=== PATIENT | female | born 1950 | race Hispanic/Latino ===

== ENCOUNTER 2017-05-22 08:21 | Inpatient (IN) | payer MEDICARE, MEDICAID ==
[2017-05-22 10:05] LABS: #Lymphocytes 1.2 thou/uL (1.20-3.40); #Monocytes 0.4 thou/uL (0.11-0.59); #Neutrophils 7.8 thou/uL (1.40-6.50); %Basophils 0.3 % (0.0-1.0); %Eosinophils 0.2 % (0.0-10.0); %Lymphocytes 12.3 % (21.0-51.0); %Neutrophils 83.2 % (42.0-75.0); Hemoglobin 14.9 g/dL (12.0-16.0); Mean Corpuscular HGB CONC 31.5 g/dL (32.0-36.0); Mean Corpuscular Hemoglobin 31.1 pg (27.0-31.0); Mean Corpuscular Volume 98.9 fl (81.0-99.0); Platelet Count 286 thou/uL (130-400); RBC Distribution Width 12.2 % (11.5-14.5); Red Blood Cell (RBC) Count 4.77 mill/uL (4.20-5.40); White Blood Cell (WBC) Count 9.3 thou/uL (4.8-10.8)
--- NOTE | 2017-05-22 10:19 | RAD ---
FRONTAL VIEW CHEST SERIES: COMPARISON: 05/14/10. FINDINGS: The patient is rotated which accentuates the cardiomediastinal silhouette. There is ectasia and tort uosity of the thoracic aorta with calcification. The right hemidiaphragm is elevated limiting portio ns of the right lung base from view. There is no lobar consolidation. IMPRESSION: 1. Rotated patient accentuating cardiomediastinal silhouette. 2. There is limited visualization of the right lung base due to elevated right hemidiaphragm. 3. There is no lobar consolidation. POS: [facility]
[2017-05-22 10:33] LABS: CKMB 1.8 ng/mL (0-6.6); Troponin I 0.072 ng/mL (< 0.028)
[2017-05-22 10:35] LABS: ALT (SGPT) 8 U/L (8-55); AST (SGOT) 14 U/L (5-34); Albumin 4.3 g/dL (3.4-4.8); Alkaline Phosphatase 77 U/L (40-150); Anion Gap 23 mmol/L (10-20); BUN (Urea Nitrogen) Greater than 125 mg/dL (9.8-20.1); Bilirubin, Total 0.4 mg/dL (0.2-1.2); CK (CPK) 146 U/L (29-168); Calc. Creatinine Clearance 0 mL/min (70-130); Calcium 10.2 mg/dL (7.8-10.44); Carbon Dioxide 23 mmol/L (23-31); Chloride 121 mmol/L (98-107); Estimated GFR-MDRD 13; Globulin 3.5 g/dL (2.4-3.5); Glucose 174 mg/dL (80-115); Potassium 4.9 mmol/L (3.5-5.1); Protein, Total 7.8 g/dL (6.0-8.3); Sodium 162 mmol/L (136-145)
[2017-05-22 10:36] LABS: Bilirubin Small (Negative); Blood, Urine Negative (Negative); Clarity CLOUDY (Clear); Glucose, Urine (Dipstick) Negative (Negative); Leukocyte Trace (Negative); Nitrite Negative (Negative); Protein, Urine (Dipstick) Trace mg/dL (Neg-Trace); Specific Gravity, Urine 1.022 (1.002-1.036); Urobilinogen 0.2 mg/dL (0.2-1.0); pH, Urine 5.5 (5.0-9.0)
[2017-05-22 10:40] LABS: Bacteria/HPF None Seen HPF (None Seen); Hyaline Casts/LPF 7-10 HYALINE CAST LPF (0-3 Hyaline); Pathc Cast-AUWi Flag 2.16 (0-2.49); Squamous Epithelial 0-3 HPF (0-3); WBC/HPF 0-3 HPF (0-3)
--- NOTE | 2017-05-22 11:23 | CT ---
NONCONTRAST CT HEAD: Date: 05/22/17 HISTORY: Altered mental status. COMPARISON: 12/08/13. FINDINGS: Again noted are moderate chronic small vessel ischemic changes which do not appear to have significan tly progressed when compared to the prior study. Remote lacunar infarctions are again seen in the rig ht thalamus, as well as the right basal ganglia. There is a low density focus seen within the left ca udate nucleus, which was probably present on the prior study and likely represents a remote lacunar i nfarction. There is no evidence of an acute cortical infarction, hemorrhage, mass effect, or midline shift. Cerebral and cerebellar volume loss is again present. There is no other interval change from p rior exam. IMPRESSION: 1. No acute intracranial abnormalities demonstrated. 2. Overall stable chronic small vessel ischemic changes and cerebral volume loss. 3. Remote lacunar infarctions in each basal ganglia. POS: [facility]
[2017-05-22] MEDS ORDERED: Dextrose 5 %-0.45 % NaCl 1,000 ML IV SCH (11:45)
[2017-05-22] MEDS ORDERED: Dextrose 50% Abboject 50 ML SYRINGE SLOW IVP PRN (11:51)
[2017-05-22] MEDS ORDERED: Ondansetron HCl/PF 4 MG/2 ML Vial IVP PRN (11:51)
[2017-05-22] MEDS ORDERED: Dextrose 5% in Water 1,000 ML IV PRN (11:51)
[2017-05-22] MEDS ORDERED: HumaLOG 300 UNITS/3 ML VIAL SC PRN (11:51)
[2017-05-22] MEDS ORDERED: Acetaminophen 650 MG Suppository PR PRN (11:51)
[2017-05-22 11:57] LABS: Osmolality, Serum 388 mOsm/kg (280-295)
[2017-05-22 13:57] LABS: Troponin I 0.077 ng/mL (< 0.028)
[2017-05-22] MEDS ORDERED: FLU VACC TS2017-18 (>65YR) 0.5 ML SYRINGE IM ONE (15:45)
[2017-05-22] MEDS ORDERED: Prevnar 13-Val Conj/PF 0.5 ML SYRINGE IM ONE (15:45)
[2017-05-22] MEDS: Sodium Chloride 0.9% 1,000 ML IV SCH ×2 (16:21→22:08)
--- NOTE | 2017-05-22 17:54 | HP ---
PRIMARY CARE PHYSICIAN: Dr. Gonzalez. The patient is currently a resident of [facility]. DATE OF ADMISSION: 05/22/2017 TIME OF SERVICE: 11:30 CHIEF COMPLAINT: Altered mental status. HISTORY OF PRESENT ILLNESS: Ms. Hanley is a 66-year-old female with history of cer ebrovascular disease status post CVA leaving her aphasic and dysphagic. She is on a pureed diet with nectar thick liquids chronically and is a resident of a snf. Per note, she seems to get ar ound there okay, but over the last several days, she had decreased p.o. intake including medications and just decreased level of consciousness over the last week or so. She has not been altered from he r baseline, but she has been more difficult to arouse. She remains aphasic, unable to give any further history, most of the history is taken from the chart. Her sister Fadia, area code [phone], is her next to kin is not currently in the room. We will contact her when I have the opportunity. She was brought to the emergency department for evaluation. Here, she was found to have a creatinine of 3.45 and a BUN greater than 125, sodium was 162 and blood counts were normal. We were subsequent ly called for admission for acute kidney injury. The patient answers yes/no appropriately to questions. She states she has not been hungry, does want to eat. Although I am unsure of the reliability. I did ask her about feeding tube and she said she would be agreeable. PAST MEDICAL HISTORY: 1. Hypertension with hypertensive heart disease. 2. Degenerative joint disease. 3. Dementia. 4. 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 5. Diabetes mellitus, type 2. 6. Iron deficiency anemia. 7. Possible seizure disorder. 8. Depression. 9. Schizophrenia. 10. Some kind of renal disease that was not clearly articulated. PAST SURGICAL HISTORY: Includes a procedure for a previous cerebral aneurysm. HOME MEDICATIONS: 1. Amlodipine 10 mg p.o. daily. 2. Metformin 1000 mg p.o. b.i.d. 3. Lisinopril/HCTZ 01/22.5 one p.o. daily. 4. Trazodone 50 mg p.o. b.i.d. 5. Seroquel 50 mg p.o. daily. 6. Remeron 50 mg p.o. at bedtime, recently started. 7. 2 p.o. q.a.m. ALLERGIES: LEVOFLOXACIN, reaction is unknown. FAMILY HISTORY: Negative for clotting or bleeding disorder. No immune dysfunction. SOCIAL HISTORY: Negative for habits x3. She is a resident of [facility] custodial care. REVIEW OF SYSTEMS: Not obtainable due to aphasia. PHYSICAL EXAMINATION: VITAL SIGNS: Temperature 98.0, pulse 100, blood pressure 123/88, respiratory rate 20, satting 98% on room air. GENERAL: She is awake. She is alert. She appears to be in no acute distress. She is cachectic and very thin and frail. HEENT: Normocephalic, atraumatic, she has temporal wasting. Mucous membranes are dry. NECK: Supple. There is no lymphadenopathy, JVD or thyromegaly. She has normal carotid upstrokes. I do not appreciate bruits. LUNGS: Clear bilaterally. No wheezes, no rales, no rhonchi. CARDIOVASCULAR: Normal S1, S2. She is tachycardic, but regular. No audible murmurs. ABDOMEN: Soft, it is scaphoid, it is nontender. She has good bowel sounds. EXTREMITIES: Show no cyanosis, no clubbing, no edema. Does have a peripheral muscle wasting. SKIN: Warm, moist, and well perfused. She has no rashes or lesions. NEUROLOGIC: She moves all 4 of her extremities, has good strength. She nods and shakes her head amelia ropriately. Her cranial nerves appear to be otherwise intact. She is unable to speak clearly. She occasionally makes a word and says hello. MUSCULOSKELETAL: Large joints appear uninflamed without effusions. LABORATORY DATA: Sodium 162, potassium 4.9, chloride 121, bicarbonate 23, BUN greater than 125, crea tinine 3.45, glucose 174. Liver function completely within normal limits. CBC showed a white count of 9.3, hemoglobin 14.9, hematocrit of 47.2, and platelet count is 286,000. TSH is normal at 0.6125, CK-MB normal at 1.8, troponin I is elevated in the indeterminate range of 0 .072. Urinalysis unremarkable. Brain CT showed chronic small vessel disease, but no acute intracranial abnormalities. Chest x-ray s howed elevated left hemidiaphragm and no acute cardiopulmonary disease. ASSESSMENT AND PLAN: 1. Acute kidney injury. Creatinine is 3.45 with a BUN greater than 125 with no history of known rama al problems. Seems to be severely dehydrated. Having failure to thrive. We will give her 1 liter b olus and start her at 150 mL per hour of normal saline and watch the labs very closely. The patient states she is not hungry and this is likely secondary to decreased intake. 2. Hypernatremia. Sodium was 162 due to free water deficit. We will continue to replace. 3. Diabetes mellitus, type 2. Glucose 174. We will check a hemoglobin A1c in the morning. A slidi ng scale insulin has been ordered. I have ordered her a pureed diet with nectar thick liquids and as k the speech therapy to evaluate. 4. Severe protein calorie malnutrition. We will ask the nutrition to see. 5. Severe muscle atrophy. PT, OT has been consulted. 6. I have asked palliative care to see regarding disease progression and to determine real-life expe ctations with the family and prognosis and advanced directives. Again, I did talk to the patient about a feeding tube, she said yes, but she does have a diagnosis of dementia and schizophrenia. We will discuss with her family regarding a feeding tube would be somet jose manuel that they might be interested in. I think without that, we need to focus on comfort measures on ly.
[2017-05-22 18:00] LABS: Troponin I 0.071 ng/mL (< 0.028)
[2017-05-22] MEDS: Famotidine/PF 20 mg/2ml Vial SLOW IVP SCH (22:04)
[2017-05-23] MEDS: Sodium Chloride 0.9% 1,000 ML IV SCH (02:04)
[2017-05-23 05:53] LABS: #Lymphocytes 1.5 thou/uL (1.20-3.40); #Monocytes 0.5 thou/uL (0.11-0.59); #Neutrophils 6.3 thou/uL (1.40-6.50); %Basophils 0.3 % (0.0-1.0); %Lymphocytes 17.9 % (21.0-51.0); %Monocytes 5.6 % (0.0-10.0); %Neutrophils 76.2 % (42.0-75.0); Hemoglobin 12.5 g/dL (12.0-16.0); Mean Corpuscular HGB CONC 31.6 g/dL (32.0-36.0); Mean Corpuscular Hemoglobin 31.5 pg (27.0-31.0); Mean Corpuscular Volume 99.7 fl (81.0-99.0); Mean Platelet Volume 9.8 fL (7.4-10.4); Platelet Count 212 thou/uL (130-400); Red Blood Cell (RBC) Count 3.97 mill/uL (4.20-5.40); White Blood Cell (WBC) Count 8.3 thou/uL (4.8-10.8)
[2017-05-23 06:36] LABS: Hemoglobin A1c 5.5 % (4.0-6.0)
[2017-05-23 06:45] LABS: Anion Gap 17 mmol/L (10-20); BUN (Urea Nitrogen) 103 mg/dL (9.8-20.1); Calc. Creatinine Clearance 19 mL/min (70-130); Calcium 9.2 mg/dL (7.8-10.44); Carbon Dioxide 23 mmol/L (23-31); Chloride 131 mmol/L (98-107); Estimated GFR-MDRD 23; Glucose 103 mg/dL (80-115); Magnesium 2.4 mg/dL (1.6-2.6); Potassium 3.7 mmol/L (3.5-5.1); Sodium 167 mmol/L (136-145)
--- NOTE | 2017-05-23 06:52 | PDOC.EVN ---
Event Note - Event Note Event Note: IVF changed from NS to D5W for severe hypernatremia
[2017-05-23] MEDS: Sodium Chloride 0.45% 1,000 ML IV SCH ×3 (09:53→23:45)
[2017-05-23] MEDS: Dextrose 5% in Water 1,000 ML IV SCH ×2 (09:54→16:13)
--- NOTE | 2017-05-23 15:08 | PDOC.PN ---
- Subjective Encounter Start Date: 05/23/17 Encounter Start Time: 10:05 -: non-verbal Pt seen and examined, Dr Das note reviewed, Discussed case with pateint and Fadia her sister face to face. No feeding tubes per pt request when she was more lucid. no f/c, no N/V/D/C, no CP, no SOb, no acute events. Sister willing to try megace. if unsuccessful, considering hospice - Objective MAR Reviewed: Yes Vital Signs & Weight: Vital Signs (12 hours) Temp Pulse Resp BP Pulse Ox 05/23/17 08:43 97.6 F 77 16 145/87 H 99 05/23/17 08:00 97.6 F 77 16 Weight Weight 103 lb I&O: 05/22/17 05/23/17 05/24/17 06:59 06:59 06:59 Intake Total 2125 Balance 2125 Result Diagrams: 05/23/17 04:34 05/23/17 04:34 Additional Labs: Accuchecks 05/23/17 05/23/17 05/22/17 11:38 04:58 20:21 POC Glucose 148 H 100 100 05/22/17 16:12 POC Glucose 130 H Phys Exam - Physical Examination Constitutional: NAD cachectic HEENT: PERRLA, moist MMs, sclera anicteric, oral pharynx no lesions Neck: no nodes, no JVD, supple Respiratory: no wheezing, no rales, no rhonchi, clear to auscultation bilateral Cardiovascular: RRR, no significant murmur, no rub Gastrointestinal: soft, non-tender, no distention, positive bowel sounds Musculoskeletal: no edema, pulses present Neurological: non-focal, normal sensation, moves all 4 limbs Lymphatic: no nodes Skin: no rash, normal turgor, cap refill <2 seconds Dx/Plan - Plan cont current plan of care, plan discussed w/ family, PT/OT * .
[2017-05-23] MEDS: Megestrol Acetate 800 MG/20 ML UDCUP PO SCH ×2 (16:16→16:59)
[2017-05-23] MEDS: Famotidine/PF 20 mg/2ml Vial SLOW IVP SCH (21:28)
[2017-05-24] MEDS: Sodium Chloride 0.45% 1,000 ML IV SCH ×4 (02:44→21:27)
[2017-05-24 04:51] LABS: #Basophils 0.1 thou/uL (0.0-0.2); #Eosinphils 0.2 thou/uL (0.0-0.7); #Lymphocytes 1.7 thou/uL (1.20-3.40); #Monocytes 0.5 thou/uL (0.11-0.59); #Neutrophils 5.2 thou/uL (1.40-6.50); %Basophils 0.9 % (0.0-1.0); %Eosinophils 2.1 % (0.0-10.0); %Lymphocytes 22.1 % (21.0-51.0); %Monocytes 6.5 % (0.0-10.0); %Neutrophils 68.4 % (42.0-75.0); Hemoglobin 12.5 g/dL (12.0-16.0); Mean Corpuscular Hemoglobin 32.3 pg (27.0-31.0); Mean Corpuscular Volume 97.7 fl (81.0-99.0); Mean Platelet Volume 9.8 fL (7.4-10.4); Platelet Count 183 thou/uL (130-400); RBC Distribution Width 11.8 % (11.5-14.5); Red Blood Cell (RBC) Count 3.86 mill/uL (4.20-5.40); White Blood Cell (WBC) Count 7.6 thou/uL (4.8-10.8)
[2017-05-24 05:07] LABS: Anion Gap 11 mmol/L (10-20); BUN (Urea Nitrogen) 49 mg/dL (9.8-20.1); Calc. Creatinine Clearance 31 mL/min (70-130); Calcium 9.2 mg/dL (7.8-10.44); Carbon Dioxide 26 mmol/L (23-31); Chloride 121 mmol/L (98-107); Estimated GFR-MDRD 40; Glucose 110 mg/dL (80-115); Magnesium 1.9 mg/dL (1.6-2.6); Potassium 3.1 mmol/L (3.5-5.1); Sodium 155 mmol/L (136-145)
[2017-05-24] MEDS: Megestrol Acetate 800 MG/20 ML UDCUP PO SCH (10:01)
--- NOTE | 2017-05-24 17:14 | PDOC.PN ---
- Subjective Encounter Start Date: 05/24/17 Encounter Start Time: 16:50 Subjective: f/u for severe dehydration, SHAHZAD and hypernatremia. Overall metabolic -: parameters improved. Poor po intake per family. - Objective MAR Reviewed: Yes Vital Signs & Weight: Vital Signs (12 hours) Temp Pulse Resp BP Pulse Ox 05/24/17 08:00 97.7 F 66 16 147/81 H 97 Weight Admit Weight 103 lb Weight 103 lb 3 oz I&O: 05/23/17 05/24/17 05/25/17 06:59 06:59 06:59 Intake Total 2124 Balance 2124 Result Diagrams: 05/24/17 04:35 05/24/17 04:35 Additional Labs: Accuchecks 05/24/17 05/24/17 05/23/17 11:35 05:12 20:53 POC Glucose 129 H 99 155 H 05/23/17 17:05 POC Glucose 171 H Microbiology 05/22/17 10:42 Throat - Pending Group A Streptococcus Culture - Final 05/22/17 10:10 Urine Straight Catheter Urine Culture - Final NO GROWTH AT 48 HOURS 05/22/17 10:05 Throat - Pending Group A Streptococcus Screen (ELGIN) - Final Laboratory Tests 05/22/17 05/23/17 05/24/17 09:56 04:34 04:35 Sodium 162 H* 167 H* Potassium 3.7 Creatinine 3.45 H 2.17 H Magnesium 1.9 Phys Exam - Physical Examination alert, nods head to questions HEENT: PERRLA, oral pharynx no lesions Neck: no JVD, supple Respiratory: no wheezing, clear to auscultation bilateral Cardiovascular: RRR Gastrointestinal: soft, non-tender, no distention, positive bowel sounds Musculoskeletal: no edema, pulses present Neurological: normal sensation, moves all 4 limbs Skin: normal turgor, cap refill <2 seconds Dx/Plan (1) SHAHZAD (acute kidney injury) Code(s): N17.9 - ACUTE KIDNEY FAILURE, UNSPECIFIED Status: Acute Comment: Secondary to dehydration, improving, continue IVF's and monitor trend (2) Acute hypernatremia Code(s): E87.0 - HYPEROSMOLALITY AND HYPERNATREMIA Status: Acute Comment: Improved, continue D5W and repeat Na+ level in am (3) Hypokalemia Code(s): E87.6 - HYPOKALEMIA Status: Acute Comment: KlorCon 40meq BID (4) Protein-calorie malnutrition, moderate Code(s): E44.0 - MODERATE PROTEIN-CALORIE MALNUTRITION Status: Chronic Comment: Dietary consult for recommendations, family contemplating PEG tube vs po intake (5) Dysphagia as late effect of cerebrovascular accident (CVA) Code(s): I69.391 - DYSPHAGIA FOLLOWING CEREBRAL INFARCTION Status: Chronic Comment: See above (6) DM II (diabetes mellitus, type II), controlled Code(s): E11.9 - TYPE 2 DIABETES MELLITUS WITHOUT COMPLICATIONS Status: Chronic Comment: ISS, Metformin, accuchecks - Plan Continue IVF's -: Dietitian consult in am for swallowing evaluation -: KlorCon 40meq BID -: PT for mobilization -: AM lab: BMP * .
[2017-05-24] MEDS: Famotidine/PF 20 mg/2ml Vial SLOW IVP SCH (21:22)
[2017-05-25] MEDS: Sodium Chloride 0.45% 1,000 ML IV SCH ×3 (05:25→23:00)
[2017-05-25 05:37] LABS: Anion Gap 11 mmol/L (10-20); BUN (Urea Nitrogen) 24 mg/dL (9.8-20.1); Calc. Creatinine Clearance 46 mL/min (70-130); Calcium 8.7 mg/dL (7.8-10.44); Carbon Dioxide 23 mmol/L (23-31); Chloride 113 mmol/L (98-107); Estimated GFR-MDRD 64; Glucose 98 mg/dL (80-115); Potassium 3.2 mmol/L (3.5-5.1); Sodium 144 mmol/L (136-145)
[2017-05-25] MEDS: Megestrol Acetate 800 MG/20 ML UDCUP PO SCH (10:03)
--- NOTE | 2017-05-25 20:08 | PDOC.PN ---
- Subjective Encounter Start Date: 05/25/17 Encounter Start Time: 19:50 Subjective: f/u for SHAHZAD, hypernatremia and severe dehydration on IVF's. Overall -: improved and more alert. Pt declining PEG tube and will continue po intake -: with risks. - Objective Resuscitation Status: Resuscitation Status DNR:Do Not Resuscitate MAR Reviewed: Yes Vital Signs & Weight: Vital Signs (12 hours) BP 05/25/17 09:20 156/99 H Weight Admit Weight 103 lb Weight 94 lb 3.609 oz I&O: 05/24/17 05/25/17 05/26/17 06:59 06:59 06:59 Intake Total 1475 Balance 1475 Result Diagrams: 05/24/17 04:35 05/25/17 04:35 Additional Labs: Accuchecks 05/25/17 05/25/17 05/25/17 16:44 12:12 05:28 POC Glucose 153 H 126 H 67 L 05/24/17 21:26 POC Glucose 130 H Phys Exam - Physical Examination Constitutional: NAD HEENT: PERRLA, oral pharynx no lesions Neck: no JVD, supple Respiratory: no wheezing, clear to auscultation bilateral Cardiovascular: RRR Gastrointestinal: soft, non-tender, no distention, positive bowel sounds Musculoskeletal: no edema, pulses present Skin: normal turgor, cap refill <2 seconds Dx/Plan (1) SHAHZAD (acute kidney injury) Code(s): N17.9 - ACUTE KIDNEY FAILURE, UNSPECIFIED Status: Acute Comment: Secondary to dehydration, improving, continue IVF's and monitor trend (2) Acute hypernatremia Code(s): E87.0 - HYPEROSMOLALITY AND HYPERNATREMIA Status: Acute Comment: Improved, continue D5W and repeat Na+ level in am (3) Hypokalemia Code(s): E87.6 - HYPOKALEMIA Status: Acute Comment: KlorCon 40meq BID (4) Protein-calorie malnutrition, moderate Code(s): E44.0 - MODERATE PROTEIN-CALORIE MALNUTRITION Status: Chronic Comment: Dietary consult for recommendations, family contemplating PEG tube vs po intake (5) Dysphagia as late effect of cerebrovascular accident (CVA) Code(s): I69.391 - DYSPHAGIA FOLLOWING CEREBRAL INFARCTION Status: Chronic Comment: See above (6) DM II (diabetes mellitus, type II), controlled Code(s): E11.9 - TYPE 2 DIABETES MELLITUS WITHOUT COMPLICATIONS Status: Chronic Comment: ISS, Metformin, accuchecks - Plan plan discussed w/ family, PT/OT, social services counselor, speech therapy, DVT proph w/ SCDs Stable overall -: Continue IVF's another 24h then d/c -: Palliative care consult appreciated -: No PEG tube -: Megace 800mg daily * Am lab: BMP * Likely d/c in 48h
[2017-05-25] MEDS: Famotidine 20 MG TAB PO SCH (20:59)
[2017-05-26 05:43] LABS: Anion Gap 12 mmol/L (10-20); BUN (Urea Nitrogen) 18 mg/dL (9.8-20.1); Calc. Creatinine Clearance 42 mL/min (70-130); Calcium 8.8 mg/dL (7.8-10.44); Carbon Dioxide 22 mmol/L (23-31); Chloride 114 mmol/L (98-107); Estimated GFR-MDRD 64; Glucose 99 mg/dL (80-115); Potassium 4.3 mmol/L (3.5-5.1); Sodium 144 mmol/L (136-145)
[2017-05-26] MEDS: Sodium Chloride 0.45% 1,000 ML IV SCH ×2 (06:37→17:17)
[2017-05-26] MEDS: Megestrol Acetate 800 MG/20 ML UDCUP PO SCH (08:27)
--- NOTE | 2017-05-26 19:33 | PDOC.PN ---
- Subjective Encounter Start Date: 05/26/17 Encounter Start Time: 18:25 Subjective: f/u for SHAHZAD, hypernatremia and severe dehydration. Overall resolving -: and pt feeling better. Appetite improving. Hospice evaluation today -: with plans for outpt Hospice on d/c. - Objective Resuscitation Status: Resuscitation Status DNR:Do Not Resuscitate MAR Reviewed: Yes Vital Signs & Weight: Vital Signs (12 hours) Temp Pulse Resp BP Pulse Ox 05/26/17 08:27 97.6 F 61 16 153/75 H 100 05/26/17 08:00 97.6 F 61 16 100 Weight Admit Weight 103 lb Weight 94 lb I&O: 05/25/17 05/26/17 05/27/17 06:59 06:59 06:59 Intake Total 1475 Balance 1475 Result Diagrams: 05/24/17 04:35 05/26/17 05:04 Additional Labs: Accuchecks 05/26/17 05/26/17 05/26/17 17:05 11:16 04:58 POC Glucose 152 H 143 H 88 05/25/17 19:43 POC Glucose 193 H Phys Exam - Physical Examination Constitutional: NAD smiles, responsive, frail appearing HEENT: PERRLA, oral pharynx no lesions Neck: no JVD, supple Respiratory: no wheezing, clear to auscultation bilateral Cardiovascular: RRR Gastrointestinal: soft, non-tender, no distention, positive bowel sounds generalized atrophy Musculoskeletal: no edema, pulses present Neurological: normal sensation, moves all 4 limbs Skin: normal turgor, cap refill <2 seconds Dx/Plan (1) SHAHZAD (acute kidney injury) Code(s): N17.9 - ACUTE KIDNEY FAILURE, UNSPECIFIED Status: Acute Comment: Secondary to dehydration, resolved (2) Acute hypernatremia Code(s): E87.0 - HYPEROSMOLALITY AND HYPERNATREMIA Status: Acute Comment: Resolved (3) Hypokalemia Code(s): E87.6 - HYPOKALEMIA Status: Acute Comment: Resolved, d/c KCL (4) Protein-calorie malnutrition, moderate Code(s): E44.0 - MODERATE PROTEIN-CALORIE MALNUTRITION Status: Chronic Comment: Dietary consult for recommendations, po intake with risks and modified diet (5) Dysphagia as late effect of cerebrovascular accident (CVA) Code(s): I69.391 - DYSPHAGIA FOLLOWING CEREBRAL INFARCTION Status: Chronic Comment: See above (6) DM II (diabetes mellitus, type II), controlled Code(s): E11.9 - TYPE 2 DIABETES MELLITUS WITHOUT COMPLICATIONS Status: Chronic Comment: ISS, Metformin, accuchecks - Plan plan discussed w/ family, PT/OT, social security assessor, speech therapy, out of bed/ ambulate, DVT proph w/SCDs Stable overall -: Decrease IVF's 75ml/h -: D/C KCL -: OOB with PT -: Home with hospice in am * .
[2017-05-26] MEDS: Famotidine 20 MG TAB PO SCH ×2 (20:09→20:10)
[2017-05-27] MEDS: Sodium Chloride 0.45% 1,000 ML IV SCH ×3 (01:04→09:03)
[2017-05-27 08:42] VITALS: BP 125/90; TEMP 97
[2017-05-27] MEDS: Megestrol Acetate 800 MG/20 ML UDCUP PO SCH ×2 (09:03→09:06)
--- NOTE | 2017-05-27 13:29 | DIS ---
DISCHARGE DIAGNOSES: 1. Acute kidney injury secondary to severe dehydration, resolving. 2. Acute hypernatremia secondary to #1, resolved. 3. Hypokalemia, resolved. 4. Moderate to severe protein calorie malnutrition. 5. Dysphagia secondary to a prior cerebrovascular accident, improved. 6. Diabetes mellitus type 2, hemoglobin A1C 5.5. 7. Hypertension, mild. 8. Schizophrenia. CONSULTATIONS: [facility]. PERTINENT LAB AND X-RAY FINDINGS: Creatinine ranged between 0.88 to 3.45, estimated GFR ranging betw een 13 to 64. Potassium ranged between 3.1 to 4.9, sodium level ranged between 144 to 167, TSH 0.61. CBC within normal limits. Group A Streptococcus screen from throat culture negative. Urine cultur e dated 05/22/2017 showed no growth at [address] of the brain without contrast dated 05/22/2017 s howed no acute intracranial process. Chronic small vessel ischemic changes noted. Remote lacunar in farct of each basil ganglia. HOSPITAL COURSE: The patient was admitted to the medical floor after initially presenting with sever e dehydration with associated acute kidney injury and hypernatremia. The patient was given IV fluid hydration with serial monitoring of sodium values showing overall improvement with hydration and free water replacement. The patient continued to clinically improve with hydration and volume replacemen t and was evaluated due to questionable history of dysphagia. The patient was evaluated by the [facility] h therapy service with recommendations for modified oral intake after patient was denying proceeding with possible PEG tube placement. The patient was adamant about not receiving a feeding tube and wou ld like to continue oral intake even with risk of aspiration. Discussions were had with the family a nd the patient regarding this issue and the patient was able to tolerate oral intake with nectar thic k and pureed texture. Due to patient's overall comorbid status and moderate to severe protein calori e malnutrition, the patient was evaluated by hospice services. The patient and family wishing to [facility] after discharge on an ongoing basis at [facility]. Overall, the pat ient did remain clinically stable with general supportive measures. The patient tolerating regular o ral intake, ambulating short distances with assistance and ready for discharge on 05/27/2017. DISCHARGE MEDICATIONS: 1. Amlodipine 10 mg 1 tab p.o. daily. 2. Seroquel 50 mg p.o. at bedtime. 3. Trazodone 50 mg p.o. b.i.d. FOLLOWUP: The patient will follow up with Dr. Sanderson at [facility] after disc harge. The patient will follow up with of [facility] on discharge to [facility]. CONDITION ON DISCHARGE: Fair. ACTIVITY: Ad diane. DIET: High protein, high calorie with nectar thick liquids and pureed texture. CODE STATUS: Do not resuscitate. DISPOSITION: Discharged to [facility] on 05/27/2017. Total time preparing and coordinating discharge was 35 minutes.
--- NOTE | 2017-06-05 06:52 | PQF ---
GENNY URIBEISMAEL DO [id number] -[id number] CLINICAL DOCUMENTATION CLARIFICATION FORM: POST DISCHARGE Addendum to original discharge summary date: 05/27/2017 Date: 06/05/2017 ATTN: Dr. Brasher Please exercise your independent, professional judgment in responding to the clarification form. Clinical indicators are provided on the bottom of this form for your review Please check appropriate box(s): [ ] Protein Calorie Malnutrition Moderate [ x ] Protein Calorie Malnutrition Moderate with progression to Severe [ ] Protein Calorie Malnutrition Severe [ ] Other Malnutrition (please specify) [ ] Other diagnosis (please specify) [ ] Unable to determine In addition, please specify: Present on Admission (POA): [ x ] Yes [ ] No [ ] Unable to determine CLINICAL INDICATORS - SIGNS / SYMPTOMS / LABS Two or More of the Following: Per H&P: Does have a peripheral muscle wasting. Per H&P: Temporal wasting. Per H&P: She is cachectic and very thin and frail. Per H&P: Severe protein calorie malnutrition. Per Hospitalist Progress Notes: Protein calorie malnutrition, moderate. Per discharge summary: Moderate to severe protein calorie malnutrition. RISK FACTORS Per H&P: Dysphagia secondary to prior cerebrovascular accident. TREATMENT: (per progress notes) Oral intake with nectar thick and pureed texture. Moderate Malnutrition (in acute illness) Energy Intake: <75% of estimated energy requirement for > 7 days Weight Loss: 1-2%/1 week; 5%/ 1 month; 7.5%/3 months Other: mild body fat loss; mild muscle mass loss; mild fluid accumulation; Severe Malnutrition (in acute illness) Energy Intake: < 50% of estimated energy requirement for > 5 days Weight Loss: >1-2%/1 week; >5%/1 month; >7.5%/3 months Other: moderate body fat loss; moderate muscle mass loss; moderate- severe fluid accumulation; measurably reduced maintenance representative strength (This form is maintained as a part of the permanent medical record) 2014 [employer]. All Rights Reserved [email or web address] [phone] MTDD
--- NOTE | 2017-06-06 17:04 | EKG ---
Test Reason : Blood Pressure : / mmHG Vent. Rate : 095 BPM Atrial Rate : 095 BPM P-R Int : 138 ms QRS Dur : 082 ms QT Int : 348 ms P-R-T Axes : 050 009 135 degrees QTc Int : 437 ms Normal sinus rhythm T wave abnormality, consider inferior ischemia Abnormal ECG Confirmed by JANET CASTILLO D.O. ([id number]), photograph editor YVON ADAMS ([id number]) on 06/06/2017 5:04:00 PM Referred By: Confirmed By:JANET CASTILLO D.O.
== END 2017-05-27 16:24 | DRG 683 ==
LOC: ERS 08:21 → T4-B 11:57
PROVIDERS: ADMIT Internal Medicine Infectious Disease; ATTEND Internal Medicine Infectious Disease
DX: N17.9 Acute kidney failure, unspecified (principal); E87.0 Hyperosmolality and hypernatremia; E44.0 Moderate protein-calorie malnutrition; F03.90 Unspecified dementia, unspecified severity, without behavioral disturbance, psychotic disturbance, mood disturbance, and anxiety; F20.9 Schizophrenia, unspecified; I11.9 Hypertensive heart disease without heart failure; I69.320 Aphasia following cerebral infarction; E86.0 Dehydration; R13.10 Dysphagia, unspecified; I69.391 Dysphagia following cerebral infarction; M19.90 Unspecified osteoarthritis, unspecified site; E11.9 Type 2 diabetes mellitus without complications; F32.9 Major depressive disorder, single episode, unspecified; E87.6 Hypokalemia; Z66 Do not resuscitate; Z88.1 Allergy status to other antibiotic agents; Z79.84 Long term (current) use of oral hypoglycemic drugs; Z79.899 Other long term (current) drug therapy
CPT/HCPCS: 36415; 36416; 51701; 70450; 71045; 80048; 80053; 81003; 81015; 82553; 83036; 83735; 83930; 83935; 84443; 84484; 85025; 87081; 87086; 87430; 93005; 96360; A4353; G8978-GP-CI; G8979-GP-CI; G8987-GO-CK; G8988-GO-CI; G8996-GN-CL; G8996-GN-CM; G8997-GN-CK; G8997-GN-CM; J1610; S0028

== ENCOUNTER 2018-08-18 08:14 | Inpatient (IN) | payer MEDICARE, MEDICAID ==
[2018-08-18 09:21] LABS: #Lymphocytes 1.1 thou/uL (1.20-3.40); #Monocytes 0.3 thou/uL (0.11-0.59); #Neutrophils 5.7 thou/uL (1.40-6.50); %Basophils 0.1 % (0.0-1.0); %Eosinophils 0.2 % (0.0-10.0); %Monocytes 4.6 % (0.0-10.0); %Neutrophils 80.1 % (42.0-75.0); Hemoglobin 12.3 g/dL (12.0-16.0); Mean Corpuscular Hemoglobin 26.2 pg (27.0-31.0); Mean Corpuscular Volume 84.4 fL (78.0-98.0); Mean Platelet Volume 9.5 fL (7.4-10.4); Platelet Count 297 thou/uL (130-400); RBC Distribution Width 18.5 % (11.5-14.5); Red Blood Cell (RBC) Count 4.69 mill/uL (4.20-5.40); White Blood Cell (WBC) Count 7.1 thou/uL (4.8-10.8)
--- NOTE | 2018-08-18 09:32 | RAD ---
XR Chest 1 View Portable HISTORY: Shortness of breath. COMPARISON: 05/22/2017 and 05/14/2010 exams. FINDINGS: The heart size is markedly enlarged. It is difficult to compare to the more recent examinat ion as that study was very rotated. The older 2010 study shows that the heart size appears larger than on that exam. There is no signs of overt failure or evidence of focal infiltrates. The bones amelia ear demineralized. IMPRESSION: Marked cardiomegaly.
[2018-08-18 09:41] LABS: Bilirubin Negative (Negative); Blood, Urine Trace (Negative); Clarity CLOUDY (Clear); Glucose, Urine (Dipstick) Negative (Negative); Leukocyte Negative (Negative); Nitrite Negative (Negative); Protein, Urine (Dipstick) 300 mg/dL (Neg-Trace); Urobilinogen 0.2 mg/dL (0.2-1.0)
[2018-08-18 09:44] LABS: WBC/HPF 0-3 HPF (0-3)
[2018-08-18 09:47] LABS: ALT (SGPT) 46 U/L (8-55); AST (SGOT) 34 U/L (5-34); Albumin 3.8 g/dL (3.4-4.8); Alkaline Phosphatase 110 U/L (40-150); Anion Gap 17 mmol/L (10-20); BUN (Urea Nitrogen) 30 mg/dL (9.8-20.1); Bilirubin, Total 0.8 mg/dL (0.2-1.2); Calc. Creatinine Clearance 0 mL/min (70-130); Calcium 9.3 mg/dL (7.8-10.44); Carbon Dioxide 21 mmol/L (23-31); Chloride 111 mmol/L (98-107); Estimated GFR-MDRD 42; Globulin 3.8 g/dL (2.4-3.5); Glucose 194 mg/dL (80-115); Potassium 4.1 mmol/L (3.5-5.1); Protein, Total 7.6 g/dL (6.0-8.3); Sodium 145 mmol/L (136-145)
[2018-08-18 09:48] LABS: Pathc Cast-AUWi Flag 4.08 (0-2.49)
[2018-08-18 10:06] LABS: RBC/HPF 0-3 HPF (0-3)
[2018-08-18 10:07] LABS: Bacteria/HPF 1+ HPF (None Seen); Crystals/HPF 3+ ACID URATES HPF (Negative)
[2018-08-18 10:08] LABS: CKMB 1.6 ng/mL (0-6.6)
--- NOTE | 2018-08-18 10:12 | CT ---
CTA Angio Chest W WO Con 08/18/2018 8:51 AM Indication: Shortness of breath and difficulty breathing Technique: Multiple CTA images were obtained of the thorax with IV contrast. 3D reformatted images were constructed from the raw data. Comparison: None Findings: Pulmonary arteries: No central or segmental pulmonary embolus is evident. Heart and Great Vessels: The heart is moderately to prominently enlarged. There is a moderate-sized pericardial effusion. The phase of the contrast bolus limits evaluation of the aorta and great vessels of the neck. There are moderate calcifications involving the thoracic aorta and coronary woody suzan. Lungs:There are areas of subsegmental volume loss within the left lower lobe. There is patchy areas o f groundglass opacity seen within both lungs which can be seen with subsegmental volume loss, possibly pulmonary edema or atypical pneumonia. Pleural space: Clear. Upper Abdomen: The gallbladder is surgically absent. There is reflux of contrast within the hepatic veins. There is a calcified granuloma within the liver. Osseous Structures: No acute osseous abnormality. There is scattered degenerative and osteoarthritic change present. Impression: No central or segmental pulmonary embolus. Moderate to prominent cardiomegaly with a moderate-sized pericardial effusion. There is some reflux o f contrast within the hepatic veins which can be seen with right heart dysfunction. There is patchy areas of ground glass opacity within both lungs as can be seen with subsegmental volu me loss but also pulmonary edema. Atypical pneumonia could also have findings similar to this. Recommend correlation for cardiac dysfunction. Echocardiogram may be helpful.
[2018-08-18] MEDS ORDERED: ISOVUE-370 76%-LOCM 1 ML ONE (10:46)
[2018-08-18] MEDS ORDERED: Bisacodyl 5 MG TAB PO PRN (12:19)
[2018-08-18] MEDS ORDERED: Ondansetron PF 4 MG/2 ML Vial IVP PRN (12:19)
[2018-08-18] MEDS ORDERED: Dextrose 5% in Water 1,000 ML IV PRN (12:21)
[2018-08-18] MEDS ORDERED: Dextrose 50% Abboject 50 ML SYRINGE SLOW IVP PRN (12:21)
--- NOTE | 2018-08-18 13:10 | HP ---
PRIMARY CARE PROVIDER: Dr. Raya Gonzalez. CHIEF COMPLAINT: Respiratory distress. HISTORY OF PRESENT ILLNESS: Ms. Hanley is a pleasant 68-year-old lady, who was seen at [facility] on August 18, 2018. She is a long term resident and has poor short-term memory. The patient is unable to provide any significant history. She tells me she is doing fine. Collateral history was obtained from patient's sister and daughter by the bedside. The patient resides at [facility]. She was hospitalized at this hospital in May 2017 for renal failure. The patient's family reports that she was on hospice care until last January. During the last admission, there was discussion regarding tube feeds. The patient had refused to have tube feeds in the past and does not have any PEG tube at this time. The patient's sister reports that the patient has been having episodes of shortness of breath at least since March 2018. She was called by the long term today and was told that the patient was in respiratory distress and was using all her muscles to breathe. She reports that the episodes of respiratory distress are episodic. She reports that she has seen her oxygen saturations dropped into the 60s. Today, her oxygen saturations were reportedly 81% when she was having respiratory distress. Patient reportedly stated that it felt like she had something stuck in her throat. She was therefore transferred to the emergency room. REVIEW OF SYSTEMS: Could not be completed secondary to patient's memory problems. 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 SURGICAL HISTORY: One of her strokes was apparently hemorrhagic and she had to be airlifted to [facility] for what appears to be a procedure for cerebral aneurysm. FAMILY HISTORY: No family history of premature coronary artery disease. CODE STATUS: I discussed her code status. She is DNAR. CURRENT MEDICATIONS: 1. Amlodipine 10 mg daily. 2. Abilify 5 mg daily. 3. Glipizide 5 mg daily. 4. NovoLog insulin as needed. PHYSICAL EXAMINATION: GENERAL: On examination, Ms. Hanley is awake and alert, not in acute distress. She appears malnourished. VITAL SIGNS: Blood pressure is 136/107, pulse 95, respiratory rate 14, and oxygen saturation 95% on 2 L of oxygen. She is afebrile. EYES: No scleral icterus, no conjunctival pallor. ENT: Dry mucosal membranes. No oropharyngeal erythema or exudates. NECK: Supple, nontender, trachea is midline. RESPIRATORY: Accessory muscles of breathing are not active. Chest wall movements are symmetric bilaterally. Lungs are clear to auscultation without wheeze, rhonchi, or crepitations. CARDIOVASCULAR: S1 and S2 are heard, regular. Peripheral pulses palpable. No carotid bruit. No pericardial rub. ABDOMEN: Soft, nontender, bowel sounds heard. No hepatomegaly. NEUROLOGIC: Cranial nerves 2 through 12 are intact. MUSCULOSKELETAL: Power is 4/5 in all 4 extremities. SKIN: No rashes or subcutaneous nodules. LYMPHATIC: No cervical lymphadenopathy. PSYCHIATRIC: Normal mood, normal affect, the patient is oriented to person only, not to place or time. LABORATORY DATA: Ms. Hanley's labs and investigations were reviewed. A 12-lead electrocardiogram shows normal sinus rhythm, no ST changes to suggest an acute coronary syndrome. She has occasional premature ventricular complexes. Chest x-ray showed cardiomegaly. CT angiogram of the chest did not show any evidence of pulmonary embolism. She had moderate to prominent cardiomegaly with moderate-sized pericardial effusion. She also has patchy areas of ground-glass opacity within both lungs, which can be seen with subsegmental volume loss and pulmonary edema. According to the radiologist, atypical pneumonia could also have findings similar to this. She has an unremarkable CBC, normal sodium, normal potassium, elevated blood urea nitrogen of 30, elevated creatinine of 1.27, last known creatinine 0.88, normal albumin, unremarkable liver profile, normal lactic acid, indeterminate troponin-I of 0.071, her troponins were in similar range in May 2017, and urinalysis that is negative for nitrite and leukocyte esterase. ASSESSMENT AND PLAN: Ms. Hanley is a pleasant 68-year-old lady, who was seen at [facility] on August 18, 2018. Her problem list includes: 1. Respiratory distress: The patient is presenting with episodic respiratory distress with desaturations. She will be admitted to the hospital for further management. It is unclear whether her respiratory distress is pulmonary or cardiac in origin. Given her finding of pericardial effusion, I am leaning towards a cardiac etiology. 2. Pericardial effusion: We will obtain 2D echocardiogram. We will consult Cardiology Service for opinion and help with management. We will also check BNP level. 3. Acute kidney injury: The patient has acute kidney injury. Clinically, she is dehydrated. The acute kidney injury is most likely prerenal secondary to poor oral intake. We will start gentle hydration and recheck creatinine. We will avoid nephrotoxic medications. 4. Diabetes mellitus type 2: We will start Accu-Cheks and insulin sliding scale. 5. Hypertension: We will monitor vital signs and titrate antihypertensives as needed. 6. We will consult palliative care services for discussion regarding goals of care. It is likely that the patient will benefit from hospice services following this hospitalization. 7. Severe protein-calorie malnutrition: We will consult dietitian for opinion and help with management. Many thanks for allowing me to participate in your patient's care. Please feel free to contact me with any questions or concerns. LEVEL OF RISK: Moderate. LEVEL OF COMPLEXITY: Moderate. Job ID: [id number]
[2018-08-18 13:13] LABS: Lactic Acid 2.4 mmol/L (0.5-2.2)
[2018-08-18 14:27] VITALS: BMI 20.5
[2018-08-18] MEDS: Sodium Chloride 0.9% 1,000 ML IV SCH (14:35)
[2018-08-18] MEDS ORDERED: Aripiprazole 10 MG TAB PO SCH (22:15)
--- NOTE | 2018-08-18 22:47 | CON ---
DATE OF CONSULTATION: 08/18/2018 REASON FOR CONSULTATION: Shortness of breath, pericardial effusion. HISTORY OF PRESENT ILLNESS: Ms. Hanley is a 68-year-old woman. She was brought to the hospital with difficulty breathing. The patient is a resident of [facility]. The patient was hospitalized in May with renal failure. She was on hospice care until last January. During the last admission, there was discussion regarding tube feeds, the patient refused tube feeds in the past. The family has been noticing she has been having episodes of shortness of breath and she is brought to the emergency room. She did have an oxygen saturation of 81% with respiratory distress. REVIEW OF SYSTEMS: Not reliable. The patient is unable to give significant history due to severe memory problems. PAST MEDICAL HISTORY: Degenerative joint disease, dementia, stroke, leaving her aphasic and dysphasic. PAST SURGICAL HISTORY: One of her strokes is apparently hemorrhagic. FAMILY HISTORY: No family history of premature coronary artery disease. CODE STATUS: Do not attempt resuscitation. MEDICATIONS: 1. Amlodipine. 2. Abilify. 3. Glipizide. 4. NovoLog. PHYSICAL EXAMINATION: GENERAL: This is a chronically ill-appearing, but cooperative elderly woman, looks much older than her chronologic age of 68. VITAL SIGNS: Blood pressure 138/85, pulse 86 and regular. LUNGS: Clear. CARDIAC: Normal S1, normal S2. There is no murmur, rub, or gallop. ABDOMEN: Soft, nontender. EXTREMITIES: Some contractures. SKIN: Warm and dry. PERTINENT LABORATORY DATA: Hemoglobin is 12.3. The creatinine is 1.27. She did have a creatinine up to 3.45 in May. IMAGING: Echocardiogram shows ejection fraction is severely depressed at 15% to 20%, with a filling defect in the left ventricle, looks like a thrombus. There is some calcium in this area, looks like it is probably an old thrombus. There is a small to medium pericardial effusion, not hemodynamically significant. ASSESSMENT: 1. Congestive heart failure, advanced with dilated left ventricle and left atrium, also severe mitral and tricuspid insufficiency. Long-term prognosis, very poor. 2. Severe mitral and tricuspid insufficiency due to left ventricular dilatation. 3. Severe pulmonary hypertension, filling defect in the left ventricle, looks like thrombus, probably older, some calcium in it. PLAN: 1. If she is a candidate, we would start anticoagulation with low-dose apixaban 2.5 mg twice a day. 2. We will start DAVID inhibitor and carvedilol, low doses. Prognosis is very poor. The patient actually has some Alexis-Burris periodic breathing, in all likelihood due to low cardiac output. Job ID: [id number]
[2018-08-19] MEDS ORDERED: ALPRAZolam 0.25 MG TAB PO SCH (00:30)
[2018-08-19 05:17] LABS: #Lymphocytes 0.9 thou/uL (1.20-3.40); #Monocytes 0.4 thou/uL (0.11-0.59); #Neutrophils 5.7 thou/uL (1.40-6.50); %Basophils 0.4 % (0.0-1.0); %Eosinophils 0.1 % (0.0-10.0); %Lymphocytes 12.6 % (21.0-51.0); %Monocytes 5.3 % (0.0-10.0); %Neutrophils 81.5 % (42.0-75.0); Hemoglobin 11.3 g/dL (12.0-16.0); Mean Corpuscular HGB CONC 31.3 g/dL (32.0-36.0); Mean Corpuscular Hemoglobin 26.3 pg (27.0-31.0); Mean Corpuscular Volume 83.8 fL (78.0-98.0); Mean Platelet Volume 9.7 fL (7.4-10.4); Platelet Count 242 thou/uL (130-400); RBC Distribution Width 18.2 % (11.5-14.5); Red Blood Cell (RBC) Count 4.29 mill/uL (4.20-5.40)
[2018-08-19 05:35] LABS: Anion Gap 15 mmol/L (10-20); BUN (Urea Nitrogen) 34 mg/dL (9.8-20.1); Calc. Creatinine Clearance 34 mL/min (70-130); Calcium 8.9 mg/dL (7.8-10.44); Carbon Dioxide 19 mmol/L (23-31); Chloride 117 mmol/L (98-107); Estimated GFR-MDRD 42; Glucose 219 mg/dL (80-115); Potassium 3.9 mmol/L (3.5-5.1); Sodium 147 mmol/L (136-145)
[2018-08-19] MEDS: Sodium Chloride 0.9% 1,000 ML IV SCH (07:44)
[2018-08-19] MEDS ORDERED: Carvedilol 3.125 MG TAB PO SCH ×2 (08:00→17:00)
--- NOTE | 2018-08-19 08:03 | PDOC.PN ---
- Subjective Encounter Start Date: 08/19/18 Encounter Start Time: 10:10 Subjective: Patient with intermittent SOB. Denies complaints to me currently. Sleepy -: but responsive. Carina-Burris breathing. - Objective Resuscitation Status - Order Detail: 08/18/18 12:19 Resuscitation Status Routine Resuscitation Status: DNAR: NO Resuscitation Discussed with: sister and daughter MARY Reviewed: Yes Vital Signs & Weight: Vital Signs (12 hours) Temp Pulse Resp BP BP Pulse Ox 08/19/18 07:47 79 142/84 H 08/19/18 07:40 97.8 F 79 20 142/84 H 98 08/19/18 03:17 97.6 F 71 18 130/76 100 08/18/18 20:09 97.3 F L 104 H 20 122/97 H 100 Weight Weight 112 lb I&O: 08/18/18 08/19/18 08/20/18 06:59 06:59 06:59 Intake Total 935 Balance 935 Result Diagrams: 08/19/18 04:58 08/19/18 04:58 Additional Labs: Accuchecks 08/19/18 08/18/18 08/18/18 05:43 21:43 16:01 POC Glucose 193 H 219 H 211 H Phys Exam - Physical Examination Constitutional: NAD HEENT: moist MMs Respiratory: no wheezing, no rales, no rhonchi Carina burris breathing, no wheezing currently or distress Cardiovascular: RRR Gastrointestinal: soft, positive bowel sounds Neurological: non-focal Deviation from normal: sleepy, arousable Dx/Plan (1) Acute on chronic systolic and diastolic heart failure, NYHA class 3 Code(s): I50.43 - ACUTE ON CHRONIC COMBINED SYSTOLIC AND DIASTOLIC HRT FAIL Status: Acute Comment: EF 15-20%, severe mitrial and tricuspid insufficiency, severe pulmonary hypertension, chronic left ventricular thrombus with calcifications, needs to be on anticoagulation if can tolerate it (2) SHAHZAD (acute kidney injury) Code(s): N17.9 - ACUTE KIDNEY FAILURE, UNSPECIFIED Status: Acute Comment: possibly cardiorenal, monitor closely with Lasix (3) DM II (diabetes mellitus, type II), controlled Code(s): E11.9 - TYPE 2 DIABETES MELLITUS WITHOUT COMPLICATIONS Status: Chronic Comment: ISS, Metformin, accuchecks (4) Hypertension Code(s): I10 - ESSENTIAL (PRIMARY) HYPERTENSION Status: Chronic Qualifiers: Hypertension type: essential hypertension Qualified Code(s): I10 - Essential (primary) hypertension - Plan cont current plan of care, speech therapy, DVT proph w/lovenox concerned that patient may actually be volume overloaded, no improvement in -: creatinine with IV fluids. Will stop fluids and try and dose of Lasix. * . - Discharge Day Encounter end time: 10:20
[2018-08-19] MEDS: Furosemide 40 MG/4 ML VIAL SLOW IVP SCH (08:29)
[2018-08-19] MEDS ORDERED: Lisinopril 2.5 MG TAB PO SCH (09:00)
[2018-08-19] MEDS ORDERED: Enoxaparin Sodium 30 MG/0.3 ML SYRINGE SC SCH (09:00)
[2018-08-19] MEDS ORDERED: Famotidine 20 MG TAB PO SCH (11:00)
[2018-08-19] MEDS: Acetaminophen 325 MG TAB PO PRN ×2 (11:46→17:18)
[2018-08-19] MEDS: HumaLOG 300 UNITS/3 ML VIAL SC PRN (13:15)
--- NOTE | 2018-08-19 13:36 | PRG ---
DATE OF SERVICE: 08/19/2018 SUBJECTIVE: Ms. Hanley remains noncommunicative. OBJECTIVE: VITAL SIGNS: Her blood pressure earlier was 142/84, pulse 80. LUNGS: Clear. CARDIAC: Normal S1, normal S2. DIAGNOSTIC DATA: Echocardiogram has revealed severely depressed left ventricular function. Ejection fraction 15% to 20%, filling defect in the left ventricular apex, appears to be thrombus, probably old with some calcification. ASSESSMENT: 1. Severely depressed left ventricular function. 2. Intracavitary thrombus, probably old. 3. Ma-xam-sbflohltugs status. PLAN: 1. Increase carvedilol to 6.25 mg twice a day. 2. Increase lisinopril to 5 mg a day. 3. Start low-dose apixaban. She only weighs 112 pounds and her a GFR is below 50. The patient could be released home from a cardiac standpoint tomorrow. The goal of the therapy is to reduce pain and suffering in this pleasant patient. Job ID: [id number]
[2018-08-19] MEDS: Carvedilol 6.25 MG TAB PO SCH (16:24)
[2018-08-19 16:54] LABS: Hemoglobin 11.7 g/dL (12.0-16.0); Platelet Count 256 thou/uL (130-400)
[2018-08-19 17:14] LABS: Anion Gap 14 mmol/L (10-20); BUN (Urea Nitrogen) 36 mg/dL (9.8-20.1); Calc. Creatinine Clearance 31 mL/min (70-130); Calcium 8.8 mg/dL (7.8-10.44); Carbon Dioxide 23 mmol/L (23-31); Chloride 117 mmol/L (98-107); Estimated GFR-MDRD 38; Glucose 89 mg/dL (80-115); Potassium 3.4 mmol/L (3.5-5.1); Sodium 151 mmol/L (136-145)
[2018-08-19] MEDS: Famotidine 20 MG TAB PO SCH (20:29)
[2018-08-19] MEDS: Aripiprazole 10 MG TAB PO SCH (20:29)
[2018-08-19] MEDS: Apixaban 2.5 MG TAB PO SCH (20:29)
[2018-08-20 05:23] LABS: Anion Gap 15 mmol/L (10-20); BUN (Urea Nitrogen) 34 mg/dL (9.8-20.1); Calc. Creatinine Clearance 33 mL/min (70-130); Calcium 8.9 mg/dL (7.8-10.44); Carbon Dioxide 20 mmol/L (23-31); Chloride 118 mmol/L (98-107); Estimated GFR-MDRD 41; Glucose 115 mg/dL (80-115); Potassium 3.4 mmol/L (3.5-5.1); Sodium 150 mmol/L (136-145)
[2018-08-20] MEDS: Lisinopril 5 MG TAB PO SCH (08:33)
[2018-08-20] MEDS: Furosemide 40 MG/4 ML VIAL SLOW IVP SCH (08:33)
[2018-08-20] MEDS: Famotidine 20 MG TAB PO SCH ×2 (08:33→20:18)
[2018-08-20] MEDS: Carvedilol 6.25 MG TAB PO SCH ×2 (08:33→16:31)
[2018-08-20] MEDS: Apixaban 2.5 MG TAB PO SCH ×2 (08:33→20:19)
[2018-08-20] MEDS ORDERED: Lisinopril 2.5 MG TAB PO SCH (09:00)
[2018-08-20] MEDS ORDERED: Potassium Chloride 20 MEQ TAB PO SCH (09:45)
--- NOTE | 2018-08-20 10:09 | PRG ---
DATE OF SERVICE: 08/20/2018 SUBJECTIVE: Ms. Hanley has no complaints. Her mental status appears unchanged. OBJECTIVE: VITAL SIGNS: Her blood pressure is 150/90, pulse is in the 70s. LUNGS: Clear. CARDIAC: Normal S1, normal S2. ASSESSMENT: 1. Severely depressed left ventricular function. 2. Intracavitary thrombus of the left ventricle, probably an old finding. 3. Previous stroke. PLAN: 1. She is on lisinopril 5 mg a day. 2. Carvedilol 6.25 mg twice a day. 3. Apixaban 2.5 mg twice a day. 4. We will change her to oral furosemide. 5. Give her a dose of potassium. 6. The patient can be released home back to the [facility] or to a medical bed from my standpoint. Job ID: [id number]
[2018-08-20] MEDS ORDERED: Dextrose 5% in Water 500 ML IV SCH (16:00)
--- NOTE | 2018-08-20 16:15 | PDOC.PN ---
- Subjective Encounter Start Date: 08/20/18 Encounter Start Time: 12:30 Subjective: pt up in bed does not appear in pain - Objective Resuscitation Status - Order Detail: 08/18/18 12:19 Resuscitation Status Routine Resuscitation Status: DNAR: NO Resuscitation Discussed with: sister and daughter Vital Signs & Weight: Vital Signs (12 hours) Temp Pulse Resp BP BP Pulse Ox 08/20/18 15:11 96 08/20/18 14:39 98.2 F 69 18 121/75 96 08/20/18 12:00 98.5 F 60 18 141/89 H 99 08/20/18 08:33 76 136/87 08/20/18 08:00 97.5 F L 76 20 150/92 H 100 Weight Admit Weight 112 lb Weight 112 lb I&O: 08/19/18 08/20/18 08/21/18 06:59 06:59 06:59 Intake Total 935 300 210 Balance 935 300 210 Result Diagrams: 08/19/18 16:43 08/20/18 04:54 Additional Labs: Accuchecks 08/20/18 08/20/18 08/19/18 10:45 05:28 20:28 POC Glucose 200 H 158 H 159 H 08/19/18 16:48 POC Glucose 110 Phys Exam - Physical Examination decrease breath sounds to bilateral lower lung bases Cardiovascular: RRR, no significant murmur, no rub, gallop, irregular Gastrointestinal: soft, non-tender, no distention, positive bowel sounds Musculoskeletal: no edema, pulses present, edema present Dx/Plan (1) Acute on chronic systolic and diastolic heart failure, NYHA class 3 Code(s): I50.43 - ACUTE ON CHRONIC COMBINED SYSTOLIC AND DIASTOLIC HRT FAIL Status: Acute Comment: EF 15-20%, severe mitrial and tricuspid insufficiency, severe pulmonary hypertension, chronic left ventricular thrombus with calcifications, needs to be on anticoagulation if can tolerate it (2) Hypertension Code(s): I10 - ESSENTIAL (PRIMARY) HYPERTENSION Status: Chronic Qualifiers: Hypertension type: essential hypertension Qualified Code(s): I10 - Essential (primary) hypertension (3) Acute hypernatremia Code(s): E87.0 - HYPEROSMOLALITY AND HYPERNATREMIA Status: Acute Comment: Resolved (4) Protein-calorie malnutrition, moderate Code(s): E44.0 - MODERATE PROTEIN-CALORIE MALNUTRITION Status: Chronic Comment: Dietary consult for recommendations, po intake with risks and modified diet (5) LV (left ventricular) mural thrombus without DE Code(s): I51.3 - INTRACARDIAC THROMBOSIS, NOT ELSEWHERE CLASSIFIED Status: Acute (6) Tricuspid regurgitation Code(s): I07.1 - RHEUMATIC TRICUSPID INSUFFICIENCY Status: Acute - Plan spoke with sister about pt's overall medical problems -: will start her on d5w due to hypernatremia -: pt on eliquis, sister feels she does have pain at times but cannot express -: sister feels pt will not be well taken care of at [facility] and feels hospice is -: reasonable. * . Review of Systems - Review of Systems Other: unable to obtain - Medications/Allergies Allergies/Adverse Reactions: Allergies Allergy/AdvReac Type Severity Reaction Status Date / Time levofloxacin [From Levaquin] Allergy Verified 08/18/18 16:43 Medications: Current Medications Acetaminophen (Tylenol) 650 mg PO Q6H PRN PRN Reason: Headache/Fever or MILD Pain Last Admin: 08/19/18 17:18 Dose: 650 mg Apixaban (Eliquis) 2.5 mg PO BID [facility] Last Admin: 08/20/18 08:33 Dose: 2.5 mg Aripiprazole (Abilify) 5 mg PO QPM [facility] Last Admin: 08/19/18 20:29 Dose: 5 mg Bisacodyl (Dulcolax) 10 mg PO DAILYPRN PRN PRN Reason: Constipation Carvedilol (Coreg) 6.25 mg PO BID-WM [facility] Last Admin: 08/20/18 08:33 Dose: 6.25 mg Dextrose/Water (Dextrose 50%) 25 gm SLOW IVP PRN PRN PRN Reason: Hypoglycemia Famotidine (Pepcid) 20 mg PO BID [facility] Last Admin: 08/20/18 08:33 Dose: 20 mg Furosemide (Lasix) 20 mg PO DAILY [facility] Glucagon (Glucagon) 1 mg IM PRN PRN PRN Reason: Hypoglycemia Dextrose/Water (D5w) 1,000 mls @ 0 mls/hr IV .Q0M PRN PRN Reason: Hypoglycemia Dextrose/Water (D5w) 500 mls @ 50 mls/hr IV .Q10H [facility] Insulin Human Lispro (Humalog) 0 units SC .MILD SLIDING SCALE PRN PRN Reason: Mild Correctional Scale Last Admin: 08/19/18 13:15 Dose: 4 unit Lisinopril (Zestril) 5 mg PO DAILY [facility] Last Admin: 08/20/18 08:33 Dose: 5 mg Ondansetron HCl (Zofran) 4 mg IVP Q6H PRN PRN Reason: Nausea/Vomiting Sodium Chloride (Flush - Normal Saline) 10 ml IVF Q12HR [facility] Last Admin: 08/20/18 08:34 Dose: 10 ml Sodium Chloride (Flush - Normal Saline) 10 ml IVF PRN PRN PRN Reason: Saline Flush
[2018-08-20] MEDS: HumaLOG 300 UNITS/3 ML VIAL SC PRN ×2 (16:31→20:17)
[2018-08-20] MEDS: Aripiprazole 10 MG TAB PO SCH (20:19)
[2018-08-20] MEDS ORDERED: Lorazepam 0.5 MG TAB PO SCH (23:00)
[2018-08-21 03:41] LABS: Anion Gap 15 mmol/L (10-20); BUN (Urea Nitrogen) 34 mg/dL (9.8-20.1); Calc. Creatinine Clearance 33 mL/min (70-130); Carbon Dioxide 24 mmol/L (23-31); Chloride 113 mmol/L (98-107); Estimated GFR-MDRD 41; Glucose 105 mg/dL (80-115); Potassium 3.2 mmol/L (3.5-5.1); Sodium 149 mmol/L (136-145)
[2018-08-21] MEDS: Dextrose 5 %-0.45 % NaCl 1,000 ML IV SCH ×2 (05:00→17:51)
[2018-08-21] MEDS ORDERED: Potassium Chloride 20 MEQ TAB PO SCH (08:00)
[2018-08-21 09:12] LABS: Anion Gap 14 mmol/L (10-20); BUN (Urea Nitrogen) 33 mg/dL (9.8-20.1); Calc. Creatinine Clearance 29 mL/min (70-130); Calcium 9.1 mg/dL (7.8-10.44); Carbon Dioxide 23 mmol/L (23-31); Chloride 112 mmol/L (98-107); Estimated GFR-MDRD 35; Glucose 165 mg/dL (80-115); Potassium 3.7 mmol/L (3.5-5.1); Sodium 145 mmol/L (136-145)
[2018-08-21] MEDS: Carvedilol 6.25 MG TAB PO SCH ×2 (09:59→17:52)
[2018-08-21] MEDS: Famotidine 20 MG TAB PO SCH ×2 (10:00→20:40)
[2018-08-21] MEDS: Furosemide 20 MG TAB PO SCH (10:00)
[2018-08-21] MEDS: Potassium Chloride 10 MEQ TAB PO SCH ×2 (10:26→17:31)
[2018-08-21] MEDS: Lisinopril 5 MG TAB PO SCH (12:53)
[2018-08-21] MEDS: Apixaban 2.5 MG TAB PO SCH ×2 (12:53→20:40)
--- NOTE | 2018-08-21 15:04 | PDOC.PN ---
- Subjective Encounter Start Date: 08/21/18 Encounter Start Time: 11:15 Subjective: pt up in bed no complains - Objective Resuscitation Status - Order Detail: 08/18/18 12:19 Resuscitation Status Routine Resuscitation Status: DNAR: NO Resuscitation Discussed with: sister and daughter Vital Signs & Weight: Vital Signs (12 hours) Temp Pulse Resp BP BP Pulse Ox 08/21/18 12:53 64 120/75 08/21/18 09:59 112/59 L 08/21/18 08:00 98.1 F 75 16 112/59 L 94 L 08/21/18 03:32 97.8 F 64 16 116/67 93 L Weight Admit Weight 112 lb Weight 112 lb I&O: 08/20/18 08/21/18 08/22/18 06:59 06:59 06:59 Intake Total 300 210 Balance 300 210 Result Diagrams: 08/19/18 16:43 08/21/18 08:11 Additional Labs: Accuchecks 08/21/18 08/21/18 08/20/18 11:16 05:31 20:05 POC Glucose 230 H 138 H 239 H 08/20/18 16:09 POC Glucose 185 H Phys Exam - Physical Examination Respiratory: no wheezing, no rales, no rhonchi, wheezing present, clear to auscultation bilateral Cardiovascular: RRR, no significant murmur, no rub, gallop, irregular Gastrointestinal: soft, non-tender, no distention, positive bowel sounds Musculoskeletal: no edema, pulses present, edema present Dx/Plan (1) Acute on chronic systolic and diastolic heart failure, NYHA class 3 Code(s): I50.43 - ACUTE ON CHRONIC COMBINED SYSTOLIC AND DIASTOLIC HRT FAIL Status: Acute Comment: EF 15-20%, severe mitrial and tricuspid insufficiency, severe pulmonary hypertension, chronic left ventricular thrombus with calcifications, needs to be on anticoagulation if can tolerate it (2) Hypertension Code(s): I10 - ESSENTIAL (PRIMARY) HYPERTENSION Status: Chronic Qualifiers: Hypertension type: essential hypertension Qualified Code(s): I10 - Essential (primary) hypertension (3) Acute hypernatremia Code(s): E87.0 - HYPEROSMOLALITY AND HYPERNATREMIA Status: Acute Comment: Resolved (4) Protein-calorie malnutrition, moderate Code(s): E44.0 - MODERATE PROTEIN-CALORIE MALNUTRITION Status: Chronic Comment: Dietary consult for recommendations, po intake with risks and modified diet (5) LV (left ventricular) mural thrombus without [place] Code(s): I51.3 - INTRACARDIAC THROMBOSIS, NOT ELSEWHERE CLASSIFIED Status: Acute - Plan spoke with sister yesterday about hospice. -: family agrees on hospice -: will continue current tx * . Review of Systems - Review of Systems Respiratory: Shortness of Breath Cardiovascular: negative: chest pain, palpitations, orthopnea, paroxysmal nocturnal dyspnea, edema, light headedness, other Gastrointestinal: negative: Nausea, Vomiting, Abdominal Pain, Diarrhea, Constipation, Melena, Hematochezia, Other Genitourinary: negative: Dysuria, Frequency, Incontinence, Hematuria, Retention , Other - Medications/Allergies Allergies/Adverse Reactions: Allergies Allergy/AdvReac Type Severity Reaction Status Date / Time levofloxacin [From Levaquin] Allergy Verified 08/18/18 16:43 Medications: Current Medications Acetaminophen (Tylenol) 650 mg PO Q6H PRN PRN Reason: Headache/Fever or MILD Pain Last Admin: 08/19/18 17:18 Dose: 650 mg Apixaban (Eliquis) 2.5 mg PO BID [facility] Last Admin: 08/21/18 12:53 Dose: 2.5 mg Aripiprazole (Abilify) 5 mg PO QPM [facility] Last Admin: 08/20/18 20:19 Dose: 5 mg Bisacodyl (Dulcolax) 10 mg PO DAILYPRN PRN PRN Reason: Constipation Carvedilol (Coreg) 6.25 mg PO BID-[facility] Last Admin: 08/21/18 09:59 Dose: 6.25 mg Dextrose/Water (Dextrose 50%) 25 gm SLOW IVP PRN PRN PRN Reason: Hypoglycemia Famotidine (Pepcid) 20 mg PO BID [facility] Last Admin: 08/21/18 10:00 Dose: 20 mg Furosemide (Lasix) 20 mg PO DAILY [facility] Last Admin: 08/21/18 10:00 Dose: 20 mg Glucagon (Glucagon) 1 mg IM PRN PRN PRN Reason: Hypoglycemia Dextrose/Water (D5w) 1,000 mls @ 0 mls/hr IV .Q0M PRN PRN Reason: Hypoglycemia Last Admin: 08/20/18 16:34 Dose: 1,000 mls Dextrose/Sodium Chloride (D5 1/2 Ns) 1,000 mls @ 75 mls/hr IV .[id number] [facility] Last Admin: 08/21/18 05:00 Dose: 1,000 mls Insulin Human Lispro (Humalog) 0 units SC .MILD SLIDING SCALE PRN PRN Reason: Mild Correctional Scale Last Admin: 08/20/18 20:17 Dose: 3 unit Lisinopril (Zestril) 5 mg PO DAILY [facility] Last Admin: 08/21/18 12:53 Dose: 5 mg Ondansetron HCl (Zofran) 4 mg IVP Q6H PRN PRN Reason: Nausea/Vomiting Potassium Chloride (Klor-Con 10) 40 meq PO BID-[facility] Stop: 08/21/18 17:01 Last Admin: 08/21/18 10:26 Dose: 40 meq Sodium Chloride (Flush - Normal Saline) 10 ml IVF Q12HR [facility] Last Admin: 08/21/18 10:00 Dose: 10 ml Sodium Chloride (Flush - Normal Saline) 10 ml IVF PRN PRN PRN Reason: Saline Flush
[2018-08-21] MEDS: HumaLOG 300 UNITS/3 ML VIAL SC PRN ×2 (15:06→17:52)
[2018-08-21] MEDS: Aripiprazole 10 MG TAB PO SCH (20:39)
[2018-08-22 06:18] LABS: #Basophils 0.1 thou/uL (0.0-0.2); #Eosinphils 0.2 thou/uL (0.0-0.7); #Lymphocytes 1.6 thou/uL (1.20-3.40); #Monocytes 0.5 thou/uL (0.11-0.59); #Neutrophils 6.3 thou/uL (1.40-6.50); %Eosinophils 2.1 % (0.0-10.0); %Lymphocytes 18.5 % (21.0-51.0); %Monocytes 5.6 % (0.0-10.0); %Neutrophils 72.8 % (42.0-75.0); Hemoglobin 11.9 g/dL (12.0-16.0); Mean Corpuscular HGB CONC 30.9 g/dL (32.0-36.0); Mean Corpuscular Volume 84.2 fL (78.0-98.0); Mean Platelet Volume 9.7 fL (7.4-10.4); Platelet Count 247 thou/uL (130-400); RBC Distribution Width 17.8 % (11.5-14.5); Red Blood Cell (RBC) Count 4.57 mill/uL (4.20-5.40); White Blood Cell (WBC) Count 8.6 thou/uL (4.8-10.8)
[2018-08-22 06:26] LABS: Anion Gap 13 mmol/L (10-20); BUN (Urea Nitrogen) 25 mg/dL (9.8-20.1); Calc. Creatinine Clearance 35 mL/min (70-130); Calcium 8.4 mg/dL (7.8-10.44); Carbon Dioxide 20 mmol/L (23-31); Chloride 110 mmol/L (98-107); Estimated GFR-MDRD 45; Glucose 139 mg/dL (80-115); Magnesium 1.7 mg/dL (1.6-2.6); Phosphorus 2.5 mg/dL (2.3-4.7); Potassium 3.5 mmol/L (3.5-5.1); Sodium 139 mmol/L (136-145)
[2018-08-22] MEDS: Dextrose 5 %-0.45 % NaCl 1,000 ML IV SCH (09:32)
[2018-08-22] MEDS: Apixaban 2.5 MG TAB PO SCH ×2 (09:32→21:43)
[2018-08-22] MEDS: Lisinopril 5 MG TAB PO SCH (09:32)
[2018-08-22] MEDS: Carvedilol 6.25 MG TAB PO SCH ×2 (09:37→20:17)
[2018-08-22] MEDS: Famotidine 20 MG TAB PO SCH ×2 (09:37→21:44)
[2018-08-22] MEDS: Furosemide 20 MG TAB PO SCH (09:37)
--- NOTE | 2018-08-22 15:38 | PDOC.PN ---
- Subjective Encounter Start Date: 08/22/18 Encounter Start Time: 12:30 Subjective: pt up in bed no complains - Objective Resuscitation Status - Order Detail: 08/18/18 12:19 Resuscitation Status Routine Resuscitation Status: DNAR: NO Resuscitation Discussed with: sister and daughter Vital Signs & Weight: Vital Signs (12 hours) Temp Pulse Resp BP BP Pulse Ox 08/22/18 09:37 115/67 08/22/18 09:32 53 L 115/67 08/22/18 08:10 98.0 F 53 L 18 94 L Weight Admit Weight 112 lb Weight 112 lb I&O: 08/21/18 08/22/18 08/23/18 06:59 06:59 06:59 Intake Total 210 0 Balance 210 0 Result Diagrams: 08/22/18 05:47 08/22/18 05:47 Additional Labs: Accuchecks 08/22/18 08/22/18 08/21/18 11:16 05:33 19:59 POC Glucose 213 H 140 H 173 H 08/21/18 16:14 POC Glucose 219 H Phys Exam - Physical Examination Respiratory: no wheezing, no rales, no rhonchi, wheezing present, clear to auscultation bilateral Cardiovascular: RRR, no significant murmur, no rub, gallop, irregular Gastrointestinal: soft, non-tender, no distention, positive bowel sounds Musculoskeletal: no edema, pulses present, edema present Dx/Plan (1) Acute on chronic systolic and diastolic heart failure, NYHA class 3 Code(s): I50.43 - ACUTE ON CHRONIC COMBINED SYSTOLIC AND DIASTOLIC HRT FAIL Status: Acute Comment: EF 15-20%, severe mitrial and tricuspid insufficiency, severe pulmonary hypertension, chronic left ventricular thrombus with calcifications, needs to be on anticoagulation if can tolerate it (2) Hypertension Code(s): I10 - ESSENTIAL (PRIMARY) HYPERTENSION Status: Chronic Qualifiers: Hypertension type: essential hypertension Qualified Code(s): I10 - Essential (primary) hypertension (3) Acute hypernatremia Code(s): E87.0 - HYPEROSMOLALITY AND HYPERNATREMIA Status: Acute Comment: Resolved (4) Protein-calorie malnutrition, moderate Code(s): E44.0 - MODERATE PROTEIN-CALORIE MALNUTRITION Status: Chronic Comment: Dietary consult for recommendations, po intake with risks and modified diet (5) LV (left ventricular) mural thrombus without [place] Code(s): I51.3 - INTRACARDIAC THROMBOSIS, NOT ELSEWHERE CLASSIFIED Status: Acute - Plan awaiting hospice to talk with family -: will discontinue iv fluids * . Review of Systems - Review of Systems Respiratory: negative: Cough, Dry, Shortness of Breath, Hemoptysis, SOB with Excertion, Pleuritic Pain, Sputum, Wheezing Cardiovascular: negative: chest pain, palpitations, orthopnea, paroxysmal nocturnal dyspnea, edema, light headedness, other Gastrointestinal: negative: Nausea, Vomiting, Abdominal Pain, Diarrhea, Constipation, Melena, Hematochezia, Other - Medications/Allergies Allergies/Adverse Reactions: Allergies Allergy/AdvReac Type Severity Reaction Status Date / Time levofloxacin [From Levaquin] Allergy Verified 08/18/18 16:43 Medications: Current Medications Acetaminophen (Tylenol) 650 mg PO Q6H PRN PRN Reason: Headache/Fever or MILD Pain Last Admin: 08/19/18 17:18 Dose: 650 mg Apixaban (Eliquis) 2.5 mg PO BID [facility] Last Admin: 08/22/18 09:32 Dose: 2.5 mg Aripiprazole (Abilify) 5 mg PO QPM [facility] Last Admin: 08/21/18 20:39 Dose: 5 mg Bisacodyl (Dulcolax) 10 mg PO DAILYPRN PRN PRN Reason: Constipation Carvedilol (Coreg) 6.25 mg PO BID[facility] Last Admin: 08/22/18 09:37 Dose: Not Given Dextrose/Water (Dextrose 50%) 25 gm SLOW IVP PRN PRN PRN Reason: Hypoglycemia Famotidine (Pepcid) 20 mg PO BID [facility] Last Admin: 08/22/18 09:37 Dose: 20 mg Furosemide (Lasix) 20 mg PO DAILY [facility] Last Admin: 08/22/18 09:37 Dose: 20 mg Glucagon (Glucagon) 1 mg IM PRN PRN PRN Reason: Hypoglycemia Dextrose/Water (D5w) 1,000 mls @ 0 mls/hr IV .Q0M PRN PRN Reason: Hypoglycemia Last Admin: 08/20/18 16:34 Dose: 1,000 mls Insulin Human Lispro (Humalog) 0 units SC .MILD SLIDING SCALE PRN PRN Reason: Mild Correctional Scale Last Admin: 08/21/18 17:52 Dose: 3 unit Lisinopril (Zestril) 5 mg PO DAILY [facility] Last Admin: 08/22/18 09:32 Dose: 5 mg Ondansetron HCl (Zofran) 4 mg IVP Q6H PRN PRN Reason: Nausea/Vomiting Sodium Chloride (Flush - Normal Saline) 10 ml IVF Q12HR [facility] Last Admin: 08/22/18 09:37 Dose: Not Given Sodium Chloride (Flush - Normal Saline) 10 ml IVF PRN PRN PRN Reason: Saline Flush
[2018-08-22] MEDS: Aripiprazole 10 MG TAB PO SCH (21:43)
[2018-08-23 07:50] VITALS: BP 123/78; TEMP 96.6
[2018-08-23] MEDS: Lisinopril 5 MG TAB PO SCH (09:43)
[2018-08-23] MEDS: Famotidine 20 MG TAB PO SCH (09:43)
[2018-08-23] MEDS: Apixaban 2.5 MG TAB PO SCH (09:43)
[2018-08-23] MEDS: Furosemide 20 MG TAB PO SCH (09:44)
[2018-08-23] MEDS: Carvedilol 6.25 MG TAB PO SCH (09:47)
--- NOTE | 2018-08-24 01:34 | DIS ---
DATE OF ADMISSION: 08/18/2018 DATE OF DISCHARGE: 08/23/2018 DISCHARGE DIAGNOSES: As of the following; 1. Acute on chronic systolic and diastolic heart failure. 2. Hypertension. 3. Acute . 4. Protein-calorie malnutrition. 5. Left mural thrombosis. 6. Severe MR and TR regurgitations. HOSPITAL COURSE: The patient is a 68-year-old female who initially presented to the hospital on 08/18 with complaints of shortness of breath. The patient was found to have 81% oxygen saturation. At this time, she did have a CT angiogram which did not show any evidence of acute pulmonary emboli. However, there were some concerns for possible pneumonia. At this time, she was started on broad-spectrum antibiotics and an echocardiogram was ordered. Her echocardiogram did indicate a mild pericardial effusion, however, not significant to cause any constraints. She also had an acute kidney injury, which continued to resolve throughout the hospital course. The patient was seen by Cardiology, underwent an echocardiogram which indicated an EF of 15% to 20% with severe MR and TR. At this time, the patient's family was notified who recommended hospice. The patient's symptoms wax and wane throughout the whole hospital stay. However, she has since stabilized. She is currently in no distress and she is [facility]. PHYSICAL EXAMINATION: VITAL SIGNS: As of the following; 96.6, 58, 20, on room air, 123/78. GENERAL: She is awake, alert, oriented x1. CV: S1, S2 present. No murmurs, rubs, or gallops. ABDOMEN: Soft and nontender. Bowel sounds are present x2. EXTREMITIES: No edema. MEDICATIONS: As of the following; 1. Mucinex 1-2 q.12 hours p.r.n. 2. Apixaban 2.5 b.i.d. 3. Coreg 6.25 b.i.d. 4. Pepcid 20 mg b.i.d. 5. Lasix 20 mg daily. 6. Lisinopril 5 mg daily. 7. Norvasc 5 mg daily. 8. Abilify 5 mg p.o. at bedtime. 9. Glipizide 5 mg q.a.m. Her sister has been notified and also they have been talking with hospice. The patient will be discharged to hospice. Job ID: [id number]
== END 2018-08-23 16:50 | disposition hospice, inpatient (51) | DRG 291 ==
LOC: ERS 08:14 → 2NO 13:21 → ONC 08-20 14:28
PROVIDERS: ADMIT Internal Medicine; ATTEND Internal Medicine
DX: I11.0 Hypertensive heart disease with heart failure (principal); E43 Unspecified severe protein-calorie malnutrition; J18.9 Pneumonia, unspecified organism; I31.3 Pericardial effusion (noninflammatory); N17.9 Acute kidney failure, unspecified; E87.0 Hyperosmolality and hypernatremia; Z66 Do not resuscitate; M19.90 Unspecified osteoarthritis, unspecified site; F03.90 Unspecified dementia, unspecified severity, without behavioral disturbance, psychotic disturbance, mood disturbance, and anxiety; I69.320 Aphasia following cerebral infarction; I69.391 Dysphagia following cerebral infarction; E11.9 Type 2 diabetes mellitus without complications; D50.9 Iron deficiency anemia, unspecified; G40.901 Epilepsy, unspecified, not intractable, with status epilepticus; F32.9 Major depressive disorder, single episode, unspecified; F20.9 Schizophrenia, unspecified; I08.1 Rheumatic disorders of both mitral and tricuspid valves; I50.43 Acute on chronic combined systolic (congestive) and diastolic (congestive) heart failure; I51.3 Intracardiac thrombosis, not elsewhere classified; Z79.4 Long term (current) use of insulin; Z79.899 Other long term (current) drug therapy; Z68.20 Body mass index [BMI] 20.0-20.9, adult; Z88.1 Allergy status to other antibiotic agents
CPT/HCPCS: 36415; 36416; 51701; 71045; 71275; 80048; 80053; 81003; 81015; 82553; 83605; 83735; 83880; 84100; 84484; 85025; 93005; 93306; 94760; A4353; J1650; J1940; Q9966

== ENCOUNTER 2020-03-25 09:36 | Inpatient (IN) | payer MEDICARE, MEDICAID ==
[2020-03-25] MEDS ORDERED: hydrALAZINE 20 MG/ML VIAL ONE (10:14)
[2020-03-25 10:21] LABS: #Lymphocytes 0.7 thou/uL (1.20-3.40); #Monocytes 0.3 thou/uL (0.11-0.59); #Neutrophils 7.2 thou/uL (1.40-6.50); %Basophils 0.5 % (0.0-1.0); %Eosinophils 0.3 % (0.0-10.0); %Lymphocytes 8.7 % (21.0-51.0); %Monocytes 3.2 % (0.0-10.0); %Neutrophils 87.2 % (42.0-75.0); Hemoglobin 12.4 g/dL (12.0-16.0); Mean Corpuscular HGB CONC 33.7 g/dL (32.0-36.0); Mean Corpuscular Volume 94.8 fL (78.0-98.0); Mean Platelet Volume 7.2 fL (7.4-10.4); Platelet Count 313 thou/uL (130-400); RBC Distribution Width 12.2 % (11.5-14.5); Red Blood Cell (RBC) Count 3.87 mill/uL (4.20-5.40); White Blood Cell (WBC) Count 8.3 thou/uL (4.8-10.8)
[2020-03-25 10:28] LABS: INR-International Normal Ratio 1.1; PTT 30.9 sec (22.9-36.1); Prothrombin Time 14.4 sec (12.0-14.7)
[2020-03-25 10:52] LABS: Phosphorus 2.6 mg/dL (2.3-4.7)
[2020-03-25 10:55] LABS: Bacteria/HPF 4+ HPF (None Seen); Bilirubin Negative (Negative); Blood, Urine Trace (Negative); Clarity Turbid (Clear); Glucose, Urine (Dipstick) 200 mg/dL (Negative); Ketone, Urine Negative (Negative); Leukocyte 500 Leu/uL (Negative); Nitrite Negative (Negative); Protein, Urine (Dipstick) 20 mg/dL (Neg-Trace); Specific Gravity, Urine 1.024 (1.002-1.036); Squamous Epithelial 0-3 HPF (0-3); Urobilinogen Normal mg/dL (Less than 2); WBC/HPF Greater than 50 HPF (0-3)
[2020-03-25 10:59] LABS: AST (SGOT) 22 U/L (5-34); Bilirubin, Total 0.4 mg/dL (0.2-1.2); Calcium 8.3 mg/dL (7.8-10.44); Chloride 97 mmol/L (98-107); Potassium 4.5 mmol/L (3.5-5.1); Sodium 132 mmol/L (136-145)
[2020-03-25 11:05] LABS: Actual Bicarbonate (HCO3v) 27 mEq/L (22-28); Analyzer IN Cardio ER; Base Excess 0.5 mEq/L (-2.0 to +3.0); Calcium, Ionized (venous) 1.15 mmol/L (1.16-1.32); Chloride (VBG) 97 mmol/L (98-106); Hemoglobin (Hb) 13.8 g/dL (11.7-16.1); Potassium (VBG) 4.36 mmol/L (3.70-5.30); Sodium 134.6 mmol/L (133-146); pH (venous) 7.35 (7.32-7.43)
--- NOTE | 2020-03-25 11:07 | CT ---
CT BRAIN WITHOUT CONTRAST: Date: 03/25/2020 HISTORY: Right-sided weakness. Level I stroke. COMPARISON: 05/22/2017. FINDINGS: There are changes of cortical atrophy, chronic small vessel ischemic disease, and old lacunar infarct ions in the basal ganglia. No evidence of acute infarct, hemorrhage, midline shift, or abnormal extra -axial fluid collections are seen. The ventricular size is stable and the basilar cisterns are patent . The bony calvarium is intact. The visualized paranasal sinuses and mastoid air cells are well aerat ed. IMPRESSION: No CT evidence of acute intracranial process. Discussed over the telephone with ER physician, Dr. Willie Bunn, at 0949 hours. CODE CR. POS: OFF
[2020-03-25 11:12] LABS: ALT (SGPT) 12 U/L (8-55); Albumin 3.3 g/dL (3.4-4.8); Alkaline Phosphatase 106 U/L (40-110); Anion Gap 12 mmol/L (10-20); BUN (Urea Nitrogen) 13 mg/dL (9.8-20.1); CK (CPK) 245 U/L (29-168); Calc. Creatinine Clearance 0 mL/min (70-130); Carbon Dioxide 26 mmol/L (23-31); Glucose 260 mg/dL (80-115); Protein, Total 6.3 g/dL (6.0-8.3)
[2020-03-25] MEDS ORDERED: cefTRIAXone\\ROCEPHIN 2 GM VIAL ONE (11:12)
--- NOTE | 2020-03-25 11:50 | CT ---
CTA NECK WITH IV CONTRAST AND 3D POSTPROCESSING CTA HEAD WITH IV CONTRAST AND 3D POSTPROCESSING: Date: 03/25/2020 HISTORY: Level I stroke. Right-sided weakness. FINDINGS: There is good flow in the vertebrobasilar and carotid artery systems bilaterally without evidence of high grade stenosis, major branch occlusion, or aneurysm formation. A dominant left vertebral artery is present. Scattered calcified plaque is noted. Discussed over the telephone with ER physician, Dr. Willie Bunn, at 1014 hours. CODE CR. POS: OFF
--- NOTE | 2020-03-25 11:53 | RAD ---
PORTABLE CHEST 1 VIEW: Date: 03/25/2020 Time: 1024 hours HISTORY: Stroke alert. Right-sided weakness. COVID-positive. COMPARISON: 08/18/2018. FINDINGS: The heart is enlarged. Aorta is tortuous. There is elevation of the right hemidiaphragm. No lobar con solidation, pneumothoraces, or pleural effusions are seen. There is no evidence of marita pulmonary ed frandy. IMPRESSION: No acute process. Chest radiographs can be falsely negative in the setting of COVID-19 pneumonia. POS: OFF
[2020-03-25] MEDS ORDERED: Ondansetron PF 4 MG/2 ML Vial IVP PRN (13:15)
[2020-03-25] MEDS ORDERED: Ondansetron ODT 4 MG TAB SL PRN (13:15)
[2020-03-25] MEDS ORDERED: Iopamidol-370 76% 500 ML 1 ML ONE (13:45)
[2020-03-25] MEDS ORDERED: Ondansetron ODT 4 MG TAB PO PRN (14:15)
[2020-03-25] MEDS ORDERED: hydrALAZINE 20 MG/ML VIAL SLOW IVP PRN (14:15)
[2020-03-25] MEDS ORDERED: Acetaminophen 500 MG TAB PO PRN (14:15)
[2020-03-25] MEDS ORDERED: Labetalol HCl 100 MG/20 ML VIAL SLOW IVP PRN (14:15)
--- NOTE | 2020-03-25 16:16 | HP ---
PRIMARY CARE PROVIDER: Dr. Sanderson. CHIEF COMPLAINT: Right-sided weakness, concern for TIA. HISTORY OF PRESENT ILLNESS: This is a 69-year-old female, who presents to [facility] Emergency Department in transfer from [facility], where the patient is a current resident. According to reports from the [facility] staff, the patient was less responsive to questioning as well as exhibited evidence of right-sided weakness and difficulty with speech. The patient was apparently found slumped over to the right side of her body, more confused than her baseline normal, alert and oriented x2. The patient is unable to provide any specific history due to dementia and altered mentation. The history is obtained after discussions with the emergency room attending as well as review of electronic medical record. In the emergency room, the patient underwent general evaluation including stroke rule out with CT imaging of the brain showing no acute process. CT angiogram of the head and neck also showed negative findings. Screening metabolic survey showed essentially negative results except for urinalysis suspicious for infection with positive leukocyte esterase and 4+ bacteria. The patient received IV Rocephin and IV hydralazine after the patient's blood pressure was noted in the 208 systolic range at the time of evaluation in the emergency room. PAST MEDICAL HISTORY: 1. 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 2. Question of diabetes mellitus. 3. Schizophrenia. 4. Depression. 5. Limited mobility status. 6. Hypertension. 7. Degenerative joint disease. 8. Advanced dementia. 9. Dysarthria and dysphagia secondary to previous CVA. 10. Iron deficiency anemia. 11. Questionable seizure disorder. 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 CURRENT MEDICATIONS: 1. Lasix 20 mg p.o. daily. 2. Lisinopril 5 mg p.o. daily. 3. Coreg 6.25 mg p.o. b.i.d. 4. Eliquis 2.5 mg p.o. b.i.d. ALLERGIES: LEVAQUIN. FAMILY HISTORY: Positive for hypertension and diabetes mellitus. SOCIAL HISTORY: Resides at [facility]. Minimally ambulatory. No alcohol, tobacco, or illicit drug use. Needs maximal assistance with all activities of daily living. REVIEW OF SYSTEMS: Unobtainable due to the patient's altered mental status and dysarthria. PHYSICAL EXAMINATION: VITAL SIGNS: On admission; blood pressure 208/85, pulse 67, respiratory rate is 15, temperature 97.8 degrees Fahrenheit, O2 saturation 97% on room air. GENERAL APPEARANCE: This is a 69-year-old female, nods to questions, disheveled, lying in the hospital bed, in no acute distress. HEENT: Pupils are equal, round, reactive to light and accommodation. Extraocular muscles are intact. No scleral icterus. No conjunctival injection. Nares patent. OP is clear. Oral mucosa moist. NECK: Supple. No cervical adenopathy. No thyromegaly. No carotid bruits. No JVD appreciated. Cervical spine with full active and passive range of motion. No meningeal signs noted. CHEST: Lungs are clear to auscultation bilaterally. CARDIOVASCULAR: S1 and S2 without noted murmur, rub, or gallop. ABDOMEN: Rounded, soft, nontender, and nondistended. Bowel sounds are positive in all 4 quadrants. There is no hepatosplenomegaly. No abdominal bruits. No rebound or guarding appreciated. EXTREMITIES: Warm and dry with fair turgor. No clubbing, cyanosis, or asymmetric edema appreciated. Pulses palpable distally at the dorsalis pedis, posterior tibial, and popliteal arteries bilaterally. Capillary refill less than 2 seconds. NEUROLOGIC: Moves all extremities on command, bradykinesia. Dysarthria, oriented to person. Not observed ambulatory during this exam. PERTINENT LABORATORY AND X-RAY FINDINGS: Sodium 132, potassium 4.5, chloride 97, CO2 of 26, BUN 13, creatinine 1.01, estimated GFR 54, glucose 260, lactic acid level 2.0, phosphorus 2.6, magnesium 2.0, total CK 245. Troponin-I negative x1. CBC showed a white blood cell count 8.3, hemoglobin 12.4, hematocrit 36.7, platelet count 313, with 87% neutrophils. PT 14.4, INR 1.1, PTT 30.9. Venous blood gas negative. Urinalysis showed a turbid specimen with trace blood and positive leukocyte esterase with greater than 50 to nhy-[id number]-[id number]-count WBCs per high-power field. 4+ urine bacteria. Beta-hydroxybutyrate level 0.15. IMAGING STUDIES: CT of the brain without contrast dated 03/25/2020, showed no acute intracranial process. CT angiogram of the head and neck dated 03/25/2020, showed no hemodynamically significant stenosis. Portable chest x-ray dated 03/25/2020, showed no acute cardiopulmonary process. EKG dated 03/25/2020 by my interpretation shows a junctional rhythm with heart rates in the 50s. Normal axis. Attenuated R-waves noted in the precordial leads. ASSESSMENT AND PLAN: 1. Transient ischemic attack. The patient will be admitted to the stroke unit. Initial presentation consistent with TIA, however, we will continue to monitor for clinical deterioration. Check 2D transthoracic echocardiogram. PT/OT and Speech Therapy evaluation. Consider Neurology consultation if clinically decompensating. 2. Acute metabolic encephalopathy. Suspect multifactorial process in conjunction with advanced dementia and likely ongoing infectious process with urinary tract infection. Continue supportive management and monitor mental status. 3. Urinary tract infection suspected given initial urinalysis results. Continue Rocephin 2 g IV q.24 hours. Awaiting final urine culture results. 4. Chronic dysarthria with left hemiparesis. Continue general supportive management. Fall risk precautions. PT/OT evaluation pending. 5. Chronic anticoagulation. Resume Eliquis 2.5 mg b.i.d. 6. Hypertension, labile. Questionable influence of for hypertensive encephalopathy. Resume home blood pressure regimen and monitor clinical response. 7. Prophylaxis. SCDs while in bed. Pepcid 20 mg p.o. b.i.d. 8. Code status: Do not attempt resuscitation confirmed with advance directives from [facility]. Surrogate medical decision maker is the patient's daughter. Job ID: [id number]
[2020-03-25 16:17] VITALS: BMI 23.5
[2020-03-25] MEDS: Carvedilol 6.25 MG TAB PO SCH (17:03)
[2020-03-25] MEDS: Sodium Chloride 0.9% 1,000 ML IV SCH (17:03)
[2020-03-25] MEDS: Ondansetron PF 4 MG/2 ML Vial IVP PRN ×2 (17:03→17:36)
[2020-03-25 19:25] LABS: SARS-CoV-2 MS2 Positive; SARS-CoV-2 S Gene Positive; SARS-CoV-2 by NAA DETECTED (NotDetected); SARS-CoV-2 orf1ab Positive
[2020-03-25 19:26] LABS: SARS-CoV-2 N Gene Positive
[2020-03-25] MEDS: Famotidine 20 MG TAB PO SCH (22:07)
[2020-03-25] MEDS: Apixaban 2.5 MG TAB PO SCH (22:07)
[2020-03-25] MEDS: Atorvastatin Calcium 40 MG TAB PO SCH (22:07)
[2020-03-26] MEDS: Sodium Chloride 0.9% 1,000 ML IV SCH ×2 (04:40→22:41)
[2020-03-26 05:07] LABS: #Lymphocytes 0.7 thou/uL (1.20-3.40); #Monocytes 0.6 thou/uL (0.11-0.59); #Neutrophils 15.3 thou/uL (1.40-6.50); %Basophils 0.2 % (0.0-1.0); %Eosinophils 0.1 % (0.0-10.0); %Lymphocytes 4.1 % (21.0-51.0); %Monocytes 3.6 % (0.0-10.0); Hemoglobin 13.4 g/dL (12.0-16.0); Mean Corpuscular HGB CONC 31.7 g/dL (32.0-36.0); Mean Corpuscular Volume 94.6 fL (78.0-98.0); Mean Platelet Volume 7.2 fL (7.4-10.4); Platelet Count 391 thou/uL (130-400); RBC Distribution Width 12.6 % (11.5-14.5); Red Blood Cell (RBC) Count 4.46 mill/uL (4.20-5.40); White Blood Cell (WBC) Count 16.6 thou/uL (4.8-10.8)
[2020-03-26 05:20] LABS: Anion Gap 17 mmol/L (10-20); BUN (Urea Nitrogen) 15 mg/dL (9.8-20.1); Calc. Creatinine Clearance 35 mL/min (70-130); Calcium 8.8 mg/dL (7.8-10.44); Carbon Dioxide 22 mmol/L (23-31); Chloride 103 mmol/L (98-107); Cholesterol 222 mg/dl (< 200 Desired); Glucose 317 mg/dL (80-115); HDL Cholesterol 73 mg/dL (>60 Neg Risk); LDL Cholesterol, Calculated 128 mg/dL; Potassium 4.4 mmol/L (3.5-5.1); Sodium 138 mmol/L (136-145); Triglycerides 104 mg/dL (Less than 150)
[2020-03-26] MEDS: Carvedilol 6.25 MG TAB PO SCH ×3 (11:51→16:03)
[2020-03-26] MEDS: Famotidine 20 MG TAB PO SCH ×3 (11:52→19:45)
[2020-03-26] MEDS: Furosemide 20 MG TAB PO SCH ×2 (11:52→12:08)
[2020-03-26] MEDS: Apixaban 2.5 MG TAB PO SCH ×3 (11:52→19:44)
[2020-03-26] MEDS: Lisinopril 5 MG TAB PO SCH ×2 (11:52→12:08)
[2020-03-26] MEDS: Aspirin 81 mg Enteric Coated Tablet PO SCH ×2 (11:52→12:08)
--- NOTE | 2020-03-26 12:01 | PDOC.EEG ---
Neurology EEG Report - Report Report: This EEG was performed using 24 channel [employer] video digital EEG machine with 24 disc electrodes. This was an extended 2-hour 13 minutes of inpatient video EEG recording. Digital analysis of the EEG was done for Jimmy and seizure detection which revealed abnormalities. Background: The posterior background rhythm was not observed. Hyperventilation: Not performed. Photic stimulation: Not performed. Sleep: No stage change was observed. EEG diagnosis: Generalized irregular theta activity seen throughout the recording. Absence of posterior background rhythm. Clinical interpretation: This EEG is consistent with moderate generalized nonspecific cerebral dysfunction.
[2020-03-26] MEDS: cefTRIAXone\\ROCEPHIN 2 GM in Sodium Chloride 0.9% 100 ML IVPB SCH ×2 (12:08→13:16)
[2020-03-26] MEDS ORDERED: Lorazepam 2 MG/ML VIAL SLOW IVP SCH (12:30)
--- NOTE | 2020-03-26 12:35 | CON ---
NEUROLOGY CONSULTATION DATE OF CONSULTATION: 03/26/2020 REASON FOR CONSULTATION: Right-sided weakness/rule out TIA. HISTORY OF PRESENT ILLNESS: Ms. Hanley is a 69-year-old female, who presented to the [facility] Emergency Department as a transfer from [facility] because of altered mental status with slurred speech and right-sided weakness. History is obtained from review of the patient records. The patient is unable to provide the history. Per records, the patient found slumped over to the right side of her body and was most confused at her baseline. She is alert and oriented x2. Per sister, when she was able to wheel herself at the group home and was able to sit up and was on mechanical diet. She was unable to provide any history. In the emergency room, head CT was done, which was negative for acute intracranial process. CT angiogram of the head and neck did not reveal hemodynamically significant stenosis. Labs were essentially unremarkable except urinalysis was positive for infection, so she was started on Rocephin IV and given IV hydralazine because her systolic blood pressure was above 200. REVIEW OF SYSTEMS: Unobtainable due to the patient's mental status. PAST MEDICAL HISTORY: Multiple CVAs on chronic Eliquis, question of diabetes mellitus, schizophrenia, depression, hypertension, degenerative joint disease, advanced dementia, prior CVAs with residual dysarthria and dysphagia, iron deficiency anemia, possible seizure disorder. PAST SURGICAL HISTORY: Status post cerebral aneurysm repair. CURRENT MEDICATIONS: 1. Lasix 20 mg daily. 2. Lisinopril 5 mg daily. 3. Coreg 6.25 mg p.o. b.i.d. 4. Eliquis 2.5 mg p.o. b.i.d. ALLERGIES: LEVAQUIN. FAMILY HISTORY: Significant for hypertension, diabetes mellitus. SOCIAL HISTORY: The patient is a resident of [facility]. Minimal ambulation. No documented history of tobacco, alcohol, or illegal drug abuse. PHYSICAL EXAMINATION: VITAL SIGNS: Blood pressure 200/80, pulse 80, respiratory rate 18. CVS: Regular rate and rhythm. CHEST: Clear. ABDOMEN: Soft. NECK: Supple. NEUROLOGIC: Mental status; the patient is alert, awake, but does not follow commands, does not maintain eye contact. Motor, muscle tone and bulk are normal. Moving all 4 extremities but becomes agitated and did not cooperate with the strength testing. Sensory, withdraws to nailbed pressure bilaterally. Cerebellar, did not cooperate with the testing. Cranial nerves 2 through 12 intact except 10 dysarthria. Gait deferred due to patient's safety reason. DATA REVIEWED: CT scan of the head did not reveal any acute intracranial pathology. CT angiogram of the head and neck did not reveal hemodynamically significant stenosis. EKG showed junctional rhythm with heart rate in the 50s. ASSESSMENT AND PLAN: Ms. Hanley is a 69-year-old female, who presented with stroke-like symptoms most likely TIA versus recrudescence of stroke-like symptoms in the setting of acute metabolic and infectious etiology. Neuro checks every 4 hours. Continue Eliquis for secondary stroke prevention. Check hemoglobin A1c, fasting lipid panel, and TSH. Permissive control of blood pressure at this time. Strict control of blood glucose. N.p.o. until cleared by Speech. PT/OT/Speech. Telemetry to rule out arrhythmias. 2D echo to evaluate for left ventricular ejection fraction and rule out PFO. Continue home medications when cleared by Speech. Continue medical management per primary team. DVT prophylaxis. Consider MRI of the brain to see if there is any evidence of acute intracranial process. EEG to evaluate for worsening confusion to rule out cortical irritability. We will continue to follow. Thank you for the consult. Job ID: [id number] [facility]OSPITALAlejandra
--- NOTE | 2020-03-26 13:16 | PDOC.HOSPP ---
- Subjective Encounter Date: 03/26/20 Encounter Time: 12:15 Subjective: awake, not oriented, does not communicate - Objective Vital Signs & Weight: Vital Signs (12 hours) Temp Pulse Resp BP Pulse Ox 03/26/20 12:08 96 03/26/20 12:00 98.4 F 96 18 203/104 H 93 L 03/26/20 07:44 98.3 F 108 H 18 168/89 H 93 L 03/26/20 07:40 93 L 03/26/20 04:00 98.3 F 100 16 161/80 H Weight Weight 120 lb 4.8 oz I&O: 03/25/20 03/26/20 03/27/20 06:59 06:59 06:59 Intake Total 950 Balance 950 Result Diagrams: 03/26/20 04:33 03/26/20 04:33 Hospitalist ROS - Medication Medications: Active Medications Generic Name Dose Route Start Last Admin Trade Name Freq PRN Reason Stop Dose Admin Apixaban 2.5 mg 03/25/20 21:00 03/26/20 12:07 Apixaban 2.5 Mg Tab PO Not Given BID [facility] Aspirin 81 mg 03/26/20 09:00 03/26/20 12:08 Aspirin 81 Mg Enteric Coated Tablet PO Not Given DAILY [facility] Atorvastatin Calcium 40 mg 03/25/20 21:00 03/25/20 22:07 Atorvastatin Calcium 40 Mg Tab PO Not Given HS [facility] Carvedilol 6.25 mg 03/25/20 17:00 03/26/20 12:07 Carvedilol 6.25 Mg Tab PO Not Given BID-WM [facility] Famotidine 20 mg 03/25/20 21:00 03/26/20 12:08 Famotidine 20 Mg Tab PO Not Given BID [facility] Furosemide 20 mg 03/26/20 09:00 03/26/20 12:08 Furosemide 20 Mg Tab PO Not Given DAILY [facility] Sodium Chloride 1,000 mls @ 75 mls/hr 03/25/20 14:15 03/26/20 04:40 Normal Saline 0.9% IV 1,000 mls .[id number] [facility] Administration Lisinopril 5 mg 03/26/20 09:00 03/26/20 12:08 Lisinopril 5 Mg Tab PO Not Given DAILY [facility] Ondansetron HCl 4 mg 03/25/20 14:15 03/25/20 17:36 Ondansetron Pf 4 Mg/2 Ml Vial IVP 4 mg Q6H PRN Administration Nausea/Vomiting - Exam General Appearance: awake alert, ill appearing Eye: anicteric sclera ENT: no oropharyngeal lesions, dry oral mucosa Neck: supple, no JVD Heart: RRR, no murmur Respiratory: no wheezes, no rales, rhonchi Gastrointestinal: soft, non-tender, non-distended, normal bowel sounds Extremities: no cyanosis, no edema Neurological: cranial nerve grossly intact, no focal deficits Hosp A/P (1) TIA (transient ischemic attack) Code(s): G45.9 - TRANSIENT CEREBRAL ISCHEMIC ATTACK, UNSPECIFIED Status: Acute (2) UTI (urinary tract infection) Status: Acute Qualifiers: Urinary tract infection type: acute cystitis Hematuria presence: without hematuria Qualified Code(s): N30.00 - Acute cystitis without hematuria (3) Acute metabolic encephalopathy Code(s): G93.41 - METABOLIC ENCEPHALOPATHY Status: Acute (4) FTT (failure to thrive) in adult Status: Chronic (5) COVID-19 virus infection Code(s): U07.1 - COVID-19 Status: Acute (6) SHAHZAD (acute kidney injury) Code(s): N17.9 - ACUTE KIDNEY FAILURE, UNSPECIFIED Status: Acute (7) DM II (diabetes mellitus, type II), controlled Code(s): E11.9 - TYPE 2 DIABETES MELLITUS WITHOUT COMPLICATIONS Status: Chronic Qualifiers: Diabetes mellitus termite inspector insulin use: without fci use (8) Dysphagia as late effect of cerebrovascular accident (CVA) Code(s): I69.391 - DYSPHAGIA FOLLOWING CEREBRAL INFARCTION Status: Chronic (9) Hypertension Code(s): I10 - ESSENTIAL (PRIMARY) HYPERTENSION Status: Chronic Qualifiers: (10) Protein-calorie malnutrition, moderate Code(s): E44.0 - MODERATE PROTEIN-CALORIE MALNUTRITION Status: Chronic - Plan is on asp, eliquis, coreg, lipitor, lisinopril, iv fluids and ceftriaxone await urine culture results encephalopathic now may allow ice chips with meds LDL is 128 PT/OT eval, palliative care for goals of care and end of life decisions/hospice if family agree is from [facility], unclear when she tested positive for covid initially, is not on precautions now had prior h/o mural LV thrombus, await echo results
--- NOTE | 2020-03-26 15:12 | MRI ---
EXAM: MRI of the brain without contrast HISTORY: Right-sided weakness COMPARISON: CT brain 03/25/2020 TECHNIQUE: Multiplanar multisequence MR images were obtained of the brain without IV contrast. FINDINGS: This exam is limited secondary to motion artifact. There are extensive foci of high FLAIR signal in t he subcortical and periventricular white matter, likely secondary to small vessel ischemic disease. There is a small area of restricted diffusion and high FLAIR signal in the right aspect of the brains tem near the inferior cerebellar peduncle. No hydronephrosis. No extra-axial fluid collection or intracranial hemorrhage. The expected flow voids are present. Corpus callosum, pituitary, and craniocervical junction are within normal limits. The calvarium and overlying soft tissues are unremarkable. The paranasal sinuses and mastoid air cells are well aerated. IMPRESSION: Right inferior cerebellar peduncle acute infarction
[2020-03-26] MEDS: Atorvastatin Calcium 40 MG TAB PO SCH (19:45)
[2020-03-27] MEDS: Sodium Chloride 0.9% 1,000 ML IV SCH ×2 (07:42→22:07)
[2020-03-27] MEDS: Apixaban 2.5 MG TAB PO SCH ×3 (08:14→22:07)
[2020-03-27] MEDS: Carvedilol 6.25 MG TAB PO SCH ×3 (08:14→17:07)
[2020-03-27] MEDS: Famotidine 20 MG TAB PO SCH ×2 (08:14→10:04)
[2020-03-27] MEDS: Aspirin 81 mg Enteric Coated Tablet PO SCH ×2 (08:14→10:04)
[2020-03-27] MEDS: Furosemide 20 MG TAB PO SCH ×2 (08:14→10:04)
[2020-03-27] MEDS: Lisinopril 5 MG TAB PO SCH ×2 (08:15→10:04)
[2020-03-27] MEDS: cefTRIAXone\\ROCEPHIN 2 GM in Sodium Chloride 0.9% 100 ML IVPB SCH (10:02)
[2020-03-27] MEDS ORDERED: Dextrose 5% in Water 1,000 ML IV PRN (13:14)
[2020-03-27] MEDS ORDERED: Dextrose 50% Abboject 50 ML SYRINGE SLOW IVP PRN (13:14)
[2020-03-27] MEDS ORDERED: HumaLOG 300 UNITS/3 ML VIAL SC PRN (13:14)
--- NOTE | 2020-03-27 13:16 | PDOC.HOSPP ---
- Subjective Encounter Date: 03/27/20 Encounter Time: 11:15 Subjective: is more alert than yesterday points at things, very husky voice if any, not oriented not in distress - Objective Vital Signs & Weight: Vital Signs (12 hours) Temp Pulse Pulse Pulse Resp BP BP 03/27/20 11:26 97.5 F L 95 18 03/27/20 10:04 88 03/27/20 09:25 91 94 187/108 H 207/113 H 03/27/20 07:40 03/27/20 07:31 97.5 F L 88 18 03/27/20 04:00 96.7 F L 93 18 BP Pulse Ox 03/27/20 11:26 187/113 H 94 L 03/27/20 10:04 03/27/20 09:25 03/27/20 07:40 94 L 03/27/20 07:31 187/111 H 94 L 03/27/20 04:00 156/109 H 95 Weight Admit Weight 120 lb 4.8 oz Weight 120 lb 4.8 oz I&O: 03/26/20 03/27/20 03/28/20 06:59 06:59 06:59 Intake Total 950 900 Balance 950 900 Result Diagrams: 03/26/20 04:33 03/26/20 04:33 Hospitalist ROS - Medication Medications: Active Medications Generic Name Dose Route Start Last Admin Trade Name Freq PRN Reason Stop Dose Admin Apixaban 2.5 mg 03/25/20 21:00 03/27/20 10:04 Apixaban 2.5 Mg Tab PO 2.5 mg BID RONAL Administration Aspirin 81 mg 03/26/20 09:00 03/27/20 10:04 Aspirin 81 Mg Enteric Coated Tablet PO 81 mg DAILY RONAL Administration Atorvastatin Calcium 40 mg 03/25/20 21:00 03/26/20 19:45 Atorvastatin Calcium 40 Mg Tab PO Not Given HS RONAL Carvedilol 6.25 mg 03/25/20 17:00 03/27/20 10:04 Carvedilol 6.25 Mg Tab PO 6.25 mg BID-WM RONAL Administration Furosemide 20 mg 03/26/20 09:00 03/27/20 10:04 Furosemide 20 Mg Tab PO 20 mg DAILY RONAL Administration Sodium Chloride 1,000 mls @ 75 mls/hr 03/25/20 14:15 03/27/20 07:42 Normal Saline 0.9% IV 1,000 mls .[id number] RONAL Administration Ceftriaxone Sodium 2 gm/ 100 mls @ 200 mls/hr 03/26/20 11:00 03/27/20 10:02 Sodium Chloride IVPB 100 mls 1100 RONAL Administration Lisinopril 5 mg 03/26/20 09:00 03/27/20 10:04 Lisinopril 5 Mg Tab PO 5 mg DAILY RONAL Administration Ondansetron HCl 4 mg 03/25/20 14:15 03/25/20 17:36 Ondansetron Pf 4 Mg/2 Ml Vial IVP 4 mg Q6H PRN Administration Nausea/Vomiting - Exam General Appearance: ill appearing Eye: PERRL, anicteric sclera ENT: no oropharyngeal lesions, dry oral mucosa Neck: supple, no JVD Heart: RRR, no murmur Respiratory: no wheezes, no rales Gastrointestinal: soft, non-tender, non-distended, normal bowel sounds Extremities: no cyanosis, no edema Neurological: cranial nerve grossly intact Neurological - other findings: right hemiparesis mild, accurage exam is difficult due to pt being not orie Hosp A/P (1) Acute CVA (cerebrovascular accident) Code(s): I63.9 - CEREBRAL INFARCTION, UNSPECIFIED Status: Acute (2) UTI (urinary tract infection) Status: Acute Qualifiers: Urinary tract infection type: acute cystitis Hematuria presence: without hematuria Qualified Code(s): N30.00 - Acute cystitis without hematuria (3) Acute metabolic encephalopathy Code(s): G93.41 - METABOLIC ENCEPHALOPATHY Status: Acute (4) FTT (failure to thrive) in adult Status: Chronic (5) COVID-19 virus infection Code(s): U07.1 - COVID-19 Status: Acute (6) SHAHZAD (acute kidney injury) Code(s): N17.9 - ACUTE KIDNEY FAILURE, UNSPECIFIED Status: Resolved (7) DM II (diabetes mellitus, type II), controlled Code(s): E11.9 - TYPE 2 DIABETES MELLITUS WITHOUT COMPLICATIONS Status: Chronic Qualifiers: Diabetes mellitus nursing home insulin use: without nursing home use (8) Dysphagia as late effect of cerebrovascular accident (CVA) Code(s): I69.391 - DYSPHAGIA FOLLOWING CEREBRAL INFARCTION Status: Chronic (9) Hypertension Code(s): I10 - ESSENTIAL (PRIMARY) HYPERTENSION Status: Chronic Qualifiers: (10) Protein-calorie malnutrition, moderate Code(s): E44.0 - MODERATE PROTEIN-CALORIE MALNUTRITION Status: Chronic - Plan is on asp, eliquis, coreg, lipitor, lisinopril, iv fluids and ceftriaxone await urine culture results encephalopathy is slowly clearing may allow ice chips with meds, pureed diet if she can tolerate d/w sister and POA, gave full updates, plan is for hospice at snf if deteriorates (was in hospice for 18 months and came out of it previously) LDL is 128 PT/OT eval, palliative care for goals of care and end of life decisions/hospice is from [facility], unclear when she tested positive for covid initially, is not on precautions now had prior h/o mural LV thrombus, current ef is 45%, no obvious mention of thrombus on current echo.
--- NOTE | 2020-03-27 13:22 | PDOC.NEUPN ---
- Subjective Encounter Date: 03/27/20 Subjective: Ms. Hanley is awake today but not oriented to person or place. - Objective Vital Signs & Weight: Vital Signs (12 hours) Temp Pulse Pulse Pulse Resp BP BP 03/27/20 11:26 97.5 F L 95 18 03/27/20 10:04 88 03/27/20 09:25 91 94 187/108 H 207/113 H 03/27/20 07:40 03/27/20 07:31 97.5 F L 88 18 03/27/20 04:00 96.7 F L 93 18 BP Pulse Ox 03/27/20 11:26 187/113 H 94 L 03/27/20 10:04 03/27/20 09:25 03/27/20 07:40 94 L 03/27/20 07:31 187/111 H 94 L 03/27/20 04:00 156/109 H 95 Weight Admit Weight 120 lb 4.8 oz Weight 120 lb 4.8 oz I&O: 03/26/20 03/27/20 03/28/20 06:59 06:59 06:59 Intake Total 950 900 Balance 950 900 Result Diagrams: 03/26/20 04:33 03/26/20 04:33 Radiology Reviewed by me: Yes EKG Reviewed by me: Yes ROS - Review of Systems ROS unobtainable: due to mental status (Advanced dementia) - Medication Medications: Active Medications Generic Name Dose Route Start Last Admin Trade Name Freq PRN Reason Stop Dose Admin Apixaban 2.5 mg 03/25/20 21:00 03/27/20 10:04 Apixaban 2.5 Mg Tab PO 2.5 mg BID RONAL Administration Aspirin 81 mg 03/26/20 09:00 03/27/20 10:04 Aspirin 81 Mg Enteric Coated Tablet PO 81 mg DAILY RONAL Administration Atorvastatin Calcium 40 mg 03/25/20 21:00 03/26/20 19:45 Atorvastatin Calcium 40 Mg Tab PO Not Given HS RONAL Carvedilol 6.25 mg 03/25/20 17:00 03/27/20 10:04 Carvedilol 6.25 Mg Tab PO 6.25 mg BID-WM RONAL Administration Furosemide 20 mg 03/26/20 09:00 03/27/20 10:04 Furosemide 20 Mg Tab PO 20 mg DAILY RONAL Administration Sodium Chloride 1,000 mls @ 75 mls/hr 03/25/20 14:15 03/27/20 07:42 Normal Saline 0.9% IV 1,000 mls .[id number] RONAL Administration Ceftriaxone Sodium 2 gm/ 100 mls @ 200 mls/hr 03/26/20 11:00 03/27/20 10:02 Sodium Chloride IVPB 100 mls 1100 RONAL Administration Lisinopril 5 mg 03/26/20 09:00 03/27/20 10:04 Lisinopril 5 Mg Tab PO 5 mg DAILY RONAL Administration Ondansetron HCl 4 mg 03/25/20 14:15 03/25/20 17:36 Ondansetron Pf 4 Mg/2 Ml Vial IVP 4 mg Q6H PRN Administration Nausea/Vomiting - Exam General Appearance: awake alert Eye: PERRL ENT: normocephalic atraumatic Neck: supple Respiratory: CTAB Cardiovascular: RRR Gastrointestinal: soft Extremities: no cyanosis Skin: normal turgor Neurological: no new deficit Musculoskeletal: normal tone, no muscle wasting PSYCH: not oriented Results - Labs Result Diagrams: 03/26/20 04:33 03/26/20 04:33 Lab results: WBC 16.6 thou/uL (4.8-10.8) H 03/26/20 04:33 Hgb 13.4 g/dL (12.0-16.0) 03/26/20 04:33 Hct 42.2 % (36.0-47.0) 03/26/20 04:33 MCV 94.6 fL (78.0-98.0) 03/26/20 04:33 Plt Count 391 thou/uL (130-400) 03/26/20 04:33 Neutrophils % 92.0 % (42.0-75.0) H 03/26/20 04:33 VBG pH 7.35 (7.32-7.43) 03/25/20 11:01 VBG pCO2 50.4 mmHg (42.0-51.0) 03/25/20 11:01 VBG pO2 43.1 mmHg (35.0-45.0) 03/25/20 11:01 Sodium 138 mmol/L (136-145) 03/26/20 04:33 Potassium 4.4 mmol/L (3.5-5.1) 03/26/20 04:33 Chloride 103 mmol/L (98-107) 03/26/20 04:33 Carbon Dioxide 22 mmol/L (23-31) L 03/26/20 04:33 BUN 15 mg/dL (9.8-20.1) 03/26/20 04:33 Creatinine 1.29 mg/dL (0.6-1.1) H 03/26/20 04:33 Glucose 317 mg/dL (80-115) H 03/26/20 04:33 Lactic Acid 2.0 mmol/L (0.5-2.2) 03/25/20 11:25 Calcium 8.8 mg/dL (7.8-10.44) 03/26/20 04:33 Total Bilirubin 0.4 mg/dL (0.2-1.2) 03/25/20 10:04 AST 22 U/L (5-34) 03/25/20 10:04 ALT 12 U/L (8-55) 03/25/20 10:04 Alkaline Phosphatase 106 U/L (40-110) 03/25/20 10:04 Creatine Kinase 245 U/L (29-168) H 03/25/20 10:04 Troponin I Less than 0.010 ng/mL (< 0.028) 03/25/20 10:04 Serum Total Protein 6.3 g/dL (6.0-8.3) 03/25/20 10:04 Albumin 3.3 g/dL (3.4-4.8) L 03/25/20 10:04 Urine Ketones Negative mg/dL (Negative) 03/25/20 10:20 Urine Blood Trace (Negative) A 03/25/20 10:20 Urine Nitrite Negative (Negative) 03/25/20 10:20 Ur Leukocyte Esterase 500 Anabel/uL (Negative) A 03/25/20 10:20 Urine RBC 4-6 HPF (0-3) A 03/25/20 10:20 Urine WBC Greater than 50 HPF (0-3) A 03/25/20 10:20 Ur Squamous Epith Cells 0-3 HPF (0-3) 03/25/20 10:20 Urine Bacteria 4+ HPF (None Seen) A 03/25/20 10:20 - Radiology Interpretation MRI - head Additional Comment: MRI of the brain was consistent with acute infarction in the right inferior cerebral peduncle. PN A/P (1) Acute CVA (cerebrovascular accident) Code(s): I63.9 - CEREBRAL INFARCTION, UNSPECIFIED Status: Acute (2) Acute metabolic encephalopathy Code(s): G93.41 - METABOLIC ENCEPHALOPATHY Status: Acute (3) COVID-19 virus infection Code(s): U07.1 - COVID-19 Status: Acute (4) UTI (urinary tract infection) Status: Acute Qualifiers: Urinary tract infection type: acute cystitis Hematuria presence: without hematuria Qualified Code(s): N30.00 - Acute cystitis without hematuria (5) FTT (failure to thrive) in adult Status: Chronic (6) Acute hypernatremia Code(s): E87.0 - HYPEROSMOLALITY AND HYPERNATREMIA Status: Acute (7) Acute on chronic systolic and diastolic heart failure, NYHA class 3 Code(s): I50.43 - ACUTE ON CHRONIC COMBINED SYSTOLIC AND DIASTOLIC HRT FAIL Status: Acute (8) Hypokalemia Code(s): E87.6 - HYPOKALEMIA Status: Acute (9) Tricuspid regurgitation Code(s): I07.1 - RHEUMATIC TRICUSPID INSUFFICIENCY Status: Acute (10) DM II (diabetes mellitus, type II), controlled Code(s): E11.9 - TYPE 2 DIABETES MELLITUS WITHOUT COMPLICATIONS Status: Chronic Qualifiers: Diabetes mellitus fdc insulin use: without fdc use (11) Dysphagia as late effect of cerebrovascular accident (CVA) Code(s): I69.391 - DYSPHAGIA FOLLOWING CEREBRAL INFARCTION Status: Chronic (12) Hypertension Code(s): I10 - ESSENTIAL (PRIMARY) HYPERTENSION Status: Chronic Qualifiers: (13) Protein-calorie malnutrition, moderate Code(s): E44.0 - MODERATE PROTEIN-CALORIE MALNUTRITION Status: Chronic (14) SHAHZAD (acute kidney injury) Code(s): N17.9 - ACUTE KIDNEY FAILURE, UNSPECIFIED Status: Resolved - Plan Daily Plan: plan discussed w/ family ( at bedside), PT/OT, speech therapy, DVT proph w/SCDs Ms. Hanley is a 69-year-old female with history significant for prior strokes, dementia presented with altered mental status and focal weakness. Per sister, there was marked deterioration from the baseline because otherwise she is alert and oriented x2 and was able to eat mechanical diet MRI of the brain reviewed which was consistent with acute infarction. EEG reviewed which was negative for seizure activity CTA of the head and neck did not reveal hemodynamically significant stenosis. 2D echo reviewed which showed ejection fraction of 45 to 50%. Continue neurochecks every 4 hours. Continue telemetry to rule out arrhythmias. Continue aspirin, high intensity statin and Eliquis for secondary stroke prevention Continue medical management per primary team. Palliative care team on board PT/OT/speech Continue medical management per primary team. Plan discussed in detail with the nursing staff.
[2020-03-27] MEDS: HumaLOG 300 UNITS/3 ML VIAL SC PRN (14:19)
--- NOTE | 2020-03-27 15:12 | PDOC.PALCO ---
Palliative Care Consult - Consult Details Requesting Physician: Dr Elise Reason for Consult: goals of care, family support - Pertinent HPI 69 year old female who is a resident at [facility] facility. She was found to be less responsive from her baseline, and right sided weakness with a speech deficit. Reports that baseline is oriented x2 and verbal. CT evaluation ruled out CVA, only significant finding was positive leukocyte esterase and 4+ bacteria. Admitted for further evaluation and medical management. In facility baseline patient is also max assist with all ADL - Pertinent PMH Hypertension, DM 2 - Social History Smoking Status: Never smoker Smoking: no tobacco exposure Alcohol Use: none Drug Use History: pt denies any use Living Situation: jail resident - Allergies Allergies/Adverse Reactions: Allergies Allergy/AdvReac Type Severity Reaction Status Date / Time levofloxacin [From Levaquin] Allergy Verified 08/18/18 16:43 - Subjective Curled up in bed sleeping, aphagic- moans but non sensical speech. unable to participate in exam. Lethargic - ROS Non Response: due to mental status - Objective Vital Signs: Vital Signs - Most Recent Temp Pulse Resp BP Pulse Ox 97.5 F L 95 18 187/113 H 94 L 03/27/20 11:26 03/27/20 11:26 03/27/20 11:26 03/27/20 11:26 03/27/20 11:26 Palliative Performance Scale: 30 - Physical Exam Constitutional: encephalitic, ill appearing HEENT: moist MMs, PERRLA, sclera anicteric, poor dentition Respiratory: no wheezing Deviation from normal: Clear to bases, appears to have difficulity mitigating oral secretions Cardiovascular: RRR Gastrointestinal: soft, non-tender, incontinent Genitourinary: incontinent Musculoskeletal: diffuse muscle atrophy Neurology: moves all 4 limbs, speech deficit Deviation from normal: Alert, appears oriented x1 - Problem List (1) TIA (transient ischemic attack) Code(s): G45.9 - TRANSIENT CEREBRAL ISCHEMIC ATTACK, UNSPECIFIED Current Visit: Yes Status: Acute (2) Palliative care encounter Code(s): Z51.5 - ENCOUNTER FOR PALLIATIVE CARE Current Visit: Yes Status: Acute (3) Acute metabolic encephalopathy Code(s): G93.41 - METABOLIC ENCEPHALOPATHY Current Visit: Yes Status: Acute (4) UTI (urinary tract infection) Current Visit: Yes Status: Acute Qualifiers: Urinary tract infection type: acute cystitis Hematuria presence: without hematuria Qualified Code(s): N30.00 - Acute cystitis without hematuria (5) Acute on chronic systolic and diastolic heart failure, NYHA class 3 Code(s): I50.43 - ACUTE ON CHRONIC COMBINED SYSTOLIC AND DIASTOLIC HRT FAIL Current Visit: No Status: Acute (6) DM II (diabetes mellitus, type II), controlled Code(s): E11.9 - TYPE 2 DIABETES MELLITUS WITHOUT COMPLICATIONS Current Visit: No Status: Chronic Qualifiers: Diabetes mellitus assisted insulin use: without e learning coordinator use (7) Dysphagia as late effect of cerebrovascular accident (CVA) Code(s): I69.391 - DYSPHAGIA FOLLOWING CEREBRAL INFARCTION Current Visit: No Status: Chronic - Plan/Recommendations Plan: Patient sister reports MPOA, however no documentation located. Attempting to contact patient 4 siblings to ask if they would like to designate the Aunt/patient sister as surrogate decision maker or if they would like to designate one of them to be. Laure - patient daughter works nights and will return call Maynor hurtado he will discus with his siblings and return call to PC registrar Arley - Number for Arley in not Maynor khan to attempt to locate accurate number. Please refer to Palliative Care notes in note section. Once the surrogate decision maker is determined Palliative care will assist with Goal of care. Discussed with Dr Elise [40] minutes spent on this encounter with >50% of the time in counseling and coordination of care. Thank you for this very appropriate consult.
[2020-03-27] MEDS: Atorvastatin Calcium 40 MG TAB PO SCH (22:07)
[2020-03-28 02:08] VITALS: TEMP 97.5
[2020-03-28] MEDS: HumaLOG 300 UNITS/3 ML VIAL SC PRN (06:02)
[2020-03-28 06:37] VITALS: BP 164/92
[2020-03-28] MEDS ORDERED: Famotidine 20 MG TAB PO SCH (09:00)
[2020-03-28] MEDS ORDERED: Insulin Glargine 10 UNITS in Pre-Filled Syringe 1 EACH SC SCH (09:00)
[2020-03-28] MEDS: Carvedilol 6.25 MG TAB PO SCH (09:46)
--- NOTE | 2020-03-28 15:04 | DIS ---
DATE OF ADMISSION: 03/25/2020 DATE OF DISCHARGE: 03/28/2020 This is a Summary. DATE OF : 03/28/2020. TIME OF : 7:35 a.m. PRIMARY CAUSE OF : Acute CVA with right hemiparesis from last 3 days, urinary tract infection with metabolic encephalopathy 3 days. SECONDARY CAUSE OF : Generalized debility with failure to thrive for at least 2 years; diabetes mellitus, type 2; protein-calorie malnutrition; hypertension; history of prior CVA. BRIEF COURSE DURING HOSPITALIZATION: The patient initially was sent over from [facility] for right-sided weakness and increasing confusion with difficulty speaking. The patient was found slumped over onto her right side prior to arrival. The patient has had stroke protocol initiated here and has had a complete imaging studies done. MRI brain revealed right inferior cerebellar peduncle CVA. She was also found to have had urinary tract infection. The patient's metabolic encephalopathy was slowly clearing up. She was gently hydrated with IV fluids as patient had dysphagia and was fully debilitated for oral intake for the first 48 hours. She was not cleared by Speech Therapy for swallowing. The patient was a "do not attempt to resuscitate" and the family did not want any feeding tube to be put in. The plan was to place her into hospice if she were to deteriorate further today, but around 7 in the morning, patient's heart rate went into 30s. She did not recover from this and finally breathed her last at 7:35 a.m. I have spoken to the patient's sister, Ms.Davila Loaiza and she will be shortly coming to see her. The body will be released to home per hospital protocol. The patient was in hospice for nearly 18 months and got released as she outlived in the past. Job ID: [id number] MTDD
--- NOTE | 2020-03-30 04:32 | PQF ---
Dear : Adelita Turner Date 03/30/2020 Please exercise your independent, professional judgment in responding to the clarification form. Clinical indicators are provided on the bottom of this form for your review Can you please further clarify if Sepsis is ruled in or ruled out? I DID NOT SEE THIS PATIENT ON HER LAST ADMISSION. Sepsis [ ] Ruled in diagnosis [ ] Continue to treat [ ] Resolved [ ] Ruled out diagnosis [ ] Improving [ ] Cannot rule out diagnosis [ ] Other diagnosis [ ] Unable to determine Physician Signature: Date/Time: For continuity of documentation, please document condition throughout progress notes and discharge summary. Thank You. To be completed by CDI/Coding staff for physician review: Present Clinical Indicators - Signs / Symptoms / Labs Results and Location in Medical Record [ x ] BP: BP: 703/77, Pulse 97, RR18 T: 97.5 ED Provider pg.1 [ x ] Confused ED Provider pg.2 [ x ] No sings of necrotizing fascitis or overt sepsis ED Provider pg.2 [ x ] Altered mental status H and P pg.1 [ x ] Sepsis 2/2 l to #1. suspected with criteria noted in the initial ER visit H and P pg.3 [ x ] Toxic metabolic encephalopathy H and P pg.3 [ x ] WBC: 11.1H, 8.4, 10.7 Laboratory Present Risk Factors Results and Location in Medical Record [ x ] Gangrene of left foot H and P pg.1 [ x ] Tobacco abuse H and P pg.1 [ x ] PVD H and P pg.1 [ x ] 69 years old H and P pg.1 Present Treatments Results and Location in Medical Record [ x ] IV Fluids MAR [ x ] Left below knee amputation OP report 03/26 [ x ] Vancomycin 1gm IV CDS/Box Truck Owner Operator Signature: Jerry Ortega Phone #: ext [phone] Date 03/30/2020 This is a permanent part of the Medical Record [facility]
== END 2020-03-28 10:50 | disposition expired | DRG 64 ==
LOC: ERS 09:36 → 2SE 11:30
PROVIDERS: ADMIT Family Medicine; ATTEND Internal Medicine
PROC: 8E0ZXY6 Isolation (ICD-10-PCS; principal; 2020-03-25)
DX: I63.89 Other cerebral infarction (principal); G93.41 Metabolic encephalopathy; U07.1 COVID-19; I50.43 Acute on chronic combined systolic (congestive) and diastolic (congestive) heart failure; G81.91 Hemiplegia, unspecified affecting right dominant side; N30.00 Acute cystitis without hematuria; N17.9 Acute kidney failure, unspecified; E44.0 Moderate protein-calorie malnutrition; I13.0 Hypertensive heart and chronic kidney disease with heart failure and stage 1 through stage 4 chronic kidney disease, or unspecified chronic kidney disease; E87.0 Hyperosmolality and hypernatremia; Z66 Do not resuscitate; R29.706 NIHSS score 6; M19.90 Unspecified osteoarthritis, unspecified site; F03.90 Unspecified dementia, unspecified severity, without behavioral disturbance, psychotic disturbance, mood disturbance, and anxiety; E11.22 Type 2 diabetes mellitus with diabetic chronic kidney disease; R47.81 Slurred speech; F20.9 Schizophrenia, unspecified; D50.9 Iron deficiency anemia, unspecified; G93.89 Other specified disorders of brain; I07.1 Rheumatic tricuspid insufficiency; R13.10 Dysphagia, unspecified; E87.6 Hypokalemia; I51.5 Myocardial degeneration; Z88.1 Allergy status to other antibiotic agents; Z88.8 Allergy status to other drugs, medicaments and biological substances; Z79.01 Long term (current) use of anticoagulants; Z79.899 Other long term (current) drug therapy; Z68.23 Body mass index [BMI] 23.0-23.9, adult; I69.322 Dysarthria following cerebral infarction; I69.391 Dysphagia following cerebral infarction
CPT/HCPCS: 36415; 36416; 51701; 70450; 70496; 70498; 70551; 71045; 80048; 80053; 80061; 81003; 81015; 82010; 82550; 82805; 83605; 83735; 84100; 84484; 85025; 85610; 85730; 87040; 87635; 93005; 93306; 95712; 95819; 95957; 96365; 96375; J0360; J0696; J1815; J2060; J2405; J3490; Q9967; U0003